=== PATIENT | female | born 1995 | race Caucasian/White ===

== ENCOUNTER 2017-07-30 13:44 | Emergency (ER) | payer BC ==
[2017-07-30 15:16] LABS: Appearance,Urine Clear (Clear); Bacteria,Urine Rare /hpf; Bilirubin,Urine Negative (Negative); Blood,Urine Moderate (Negative); Color,Urine Light Yellow; Glucose,Urine (UA) Negative (Negative); Ketones,Urine Negative (Negative); Leukocyte Esterase,Urine Negative (Negative); Mucus,Urine Rare /hpf; Nitrite,Urine Negative (Negative); PH, Urine 7.5 (5.0-8.0); Protein,Urine Negative (Negative); RBC,Urine 2 /hpf (0-5); Specific Gravity,Urine 1.007 (1.001-1.035); Squamous Epithelial Cell,Urine 2 /hpf (0-4); Urobilinogen,Urine <2.0 mg/dL (<2.0); WBC,Urine 1 /hpf (0-5)
--- NOTE | 2017-07-30 15:20 | ED ---
Female Urogenital HPI - General Chief complaint: Vaginal Bleeding Stated complaint: Bleeding, 6 wks preg Time Seen by Provider: 07/30/17 15:07 Source: patient Mode of arrival: ambulatory Limitations: no limitations - History of Present Illness Initial comments: patient is a 21-year-old female presents with the chief complaint of vaginal bleeding. The patient states that she took a positive test this morning. Patient states she has been having vaginal spotting since July 20 however over the last 2 days or so she has been having passage of clots, and lower abdominal cramping. The patient is concerned that she is miscarrying. Patient has no previous pregnancies. There is no aggravating or alleviating factors of her pain. Patient states that she normally has irregular periods, and she has been on and off control, currently off control. Last Menstrual Period: 06/14/17 - Related Data Home Medications Medication Instructions Recorded Confirmed Acetaminophen/Pamabrom [Midol 1 tab PO BID PRN 07/30/17 07/30/17 Caplet] Docusate [Colace] 100 mg PO DAILY PRN 07/30/17 07/30/17 Ibuprofen [Motrin Ib] 400 mg PO Q6HR PRN 07/30/17 07/30/17 Allergies Allergy/AdvReac Type Severity Reaction Status Date / Time No Known Allergies Allergy Verified 07/30/17 15:13 Review of Systems ROS Statement: Those systems with pertinent positive or pertinent negative responses have been documented in the HPI. ROS Other: All systems not noted in ROS Statement are negative. Gastrointestinal: Reports: abdominal pain, nausea, vomiting Past Medical History Past Medical History: No Reported History History of Any Multi-Drug Resistant Organisms: None Reported Past Surgical History: No Surgical Hx Reported Past Psychological History: No Psychological Hx Reported Smoking Status: Never smoker Past Alcohol Use History: None Reported Past Drug Use History: None Reported General Exam Limitations: no limitations General appearance: alert, in no apparent distress Head exam: Present: atraumatic, normocephalic Eye exam: Present: normal appearance ENT exam: Present: normal exam, mucous membranes moist Neck exam: Present: full ROM Respiratory exam: Present: normal lung sounds bilaterally Cardiovascular Exam: Present: regular rate, normal rhythm GI/Abdominal exam: Present: soft. Absent: distended, tenderness Rectal exam: Present: deferred Extremities exam: Present: normal inspection Back exam: Present: normal inspection Neurological exam: Present: alert, oriented X3 Psychiatric exam: Present: normal affect, normal mood Skin exam: Present: warm, dry, intact Course Vital Signs 07/30/17 07/30/17 14:54 16:22 Temperature 98.6 F 98.3 F Pulse Rate 81 69 Respiratory 20 18 Rate Blood Pressure 151/83 122/77 O2 Sat by Pulse 99 99 Oximetry Medical Decision Making - Medical Decision Making patient presents with chief complaint of vaginal bleeding, and positive test. On initial evaluation, patient appears stable, vital signs are stable. Patient will have physical as including urinalysis and hCG. She will go for a pelvic ultrasound. 4:53 PM lab evaluation this patient is unremarkable. Hemoglobin is stable. Beta hCG is elevated at 53. Ultrasound of the pelvic organs does not show evidence of an intrauterine , further the rest of the pelvic anatomy is within normal limits. At this time, differential includes early , early ectopic , or failed . I discussed the results with the patient, I recommended follow-up with OB for serial beta hCGs. The patient and her family are agreeable with this care plan. They're given specific signs and symptoms that should prompt return visit to the emergency department. Patient was discharged in stable condition. - Lab Data Result diagrams: 07/30/17 15:38 07/30/17 15:38 Lab Results 07/30/17 07/30/17 07/30/17 Range/Units 15:00 15:00 15:38 WBC (4.0-11.0) k/uL RBC (3.80-5.40) m/uL Hgb (11.4-16.0) gm/dL Hct (34.0-46.0) % MCV (80.0-100.0) fL MCH (25.0-35.0) pg MCHC (31.0-37.0) g/dL RDW (11.5-15.5) % Plt Count (150-450) k/uL Neutrophils % % Lymphocytes % % Monocytes % % Eosinophils % % Basophils % % Neutrophils # (1.3-7.7) k/uL Lymphocytes # (1.0-4.8) k/uL Monocytes # (0-1.0) k/uL Eosinophils # (0-0.7) k/uL Basophils # (0-0.2) k/uL Sodium 141 (137-145) mmol/L Potassium 4.3 (3.5-5.1) mmol/L Chloride 108 H (98-107) mmol/L Carbon Dioxide 24 (22-30) mmol/L Anion Gap 9 mmol/L BUN 10 (7-17) mg/dL Creatinine 0.66 (0.52-1.04) mg/dL Est GFR (MDRD) Af Amer >60 (>60 ml/min/1.73 sqM) Est GFR (MDRD) Non-Af >60 (>60 ml/min/1.73 sqM) Glucose 91 (74-99) mg/dL Calcium 10.0 (8.4-10.2) mg/dL HCG, Quant 57.3 mIU/mL Urine Color Light Yellow Urine Appearance Clear (Clear) Urine pH 7.5 (5.0-8.0) Ur Specific Mio 1.007 (1.001-1.035) Urine Protein Negative (Negative) Urine Glucose (UA) Negative (Negative) Urine Ketones Negative (Negative) Urine Blood Moderate H (Negative) Urine Nitrite Negative (Negative) Urine Bilirubin Negative (Negative) Urine Urobilinogen <2.0 (<2.0) mg/dL Ur Leukocyte Esterase Negative (Negative) Urine RBC 2 (0-5) /hpf Urine WBC 1 (0-5) /hpf Ur Squamous Epith Cells 2 (0-4) /hpf Urine Bacteria Rare H (None) /hpf Urine Mucus Rare H (None) /hpf Urine HCG, Qual Not Detected (Not Detectd) 07/30/17 Range/Units 15:38 WBC 8.0 (4.0-11.0) k/uL RBC 4.06 (3.80-5.40) m/uL Hgb 13.5 (11.4-16.0) gm/dL Hct 39.1 (34.0-46.0) % MCV 96.4 (80.0-100.0) fL MCH 33.4 (25.0-35.0) pg MCHC 34.6 (31.0-37.0) g/dL RDW 13.5 (11.5-15.5) % Plt Count 255 (150-450) k/uL Neutrophils % 75 % Lymphocytes % 18 % Monocytes % 5 % Eosinophils % 1 % Basophils % 0 % Neutrophils # 6.0 (1.3-7.7) k/uL Lymphocytes # 1.5 (1.0-4.8) k/uL Monocytes # 0.4 (0-1.0) k/uL Eosinophils # 0.1 (0-0.7) k/uL Basophils # 0.0 (0-0.2) k/uL Sodium (137-145) mmol/L Potassium (3.5-5.1) mmol/L Chloride (98-107) mmol/L Carbon Dioxide (22-30) mmol/L Anion Gap mmol/L BUN (7-17) mg/dL Creatinine (0.52-1.04) mg/dL Est GFR (MDRD) Af Amer (>60 ml/min/1.73 sqM) Est GFR (MDRD) Non-Af (>60 ml/min/1.73 sqM) Glucose (74-99) mg/dL Calcium (8.4-10.2) mg/dL HCG, Quant mIU/mL Urine Color Urine Appearance (Clear) Urine pH (5.0-8.0) Ur Specific Mio (1.001-1.035) Urine Protein (Negative) Urine Glucose (UA) (Negative) Urine Ketones (Negative) Urine Blood (Negative) Urine Nitrite (Negative) Urine Bilirubin (Negative) Urine Urobilinogen (<2.0) mg/dL Ur Leukocyte Esterase (Negative) Urine RBC (0-5) /hpf Urine WBC (0-5) /hpf Ur Squamous Epith Cells (0-4) /hpf Urine Bacteria (None) /hpf Urine Mucus (None) /hpf Urine HCG, Qual (Not Detectd) Disposition Clinical Impression: Vaginal bleeding Disposition: HOME SELF-CARE Condition: Good Instructions: Miscarriage (ED) Referrals: Deyanira Horn DO [Primary Care Provider] - 1-2 days
[2017-07-30 15:51] LABS: Basophils % (A) 0 %; Eosinophils # (A) 0.1 k/uL (0-0.7); Eosinophils % (A) 1 %; HCT 39.1 % (34.0-46.0); HGB 13.5 gm/dL (11.4-16.0); Lymphocytes # (A) 1.5 k/uL (1.0-4.8); Lymphocytes % (A) 18 %; MCH 33.4 pg (25.0-35.0); MCHC 34.6 g/dL (31.0-37.0); MCV 96.4 fL (80.0-100.0); Mean Platelet Volume 8.7; Monocytes # (A) 0.4 k/uL (0-1.0); Monocytes % (A) 5 %; Neutrophils % (A) 75 %; Platelet Count 255 k/uL (150-450); RBC 4.06 m/uL (3.80-5.40); RDW 13.5 % (11.5-15.5)
[2017-07-30 15:56] LABS: Anion Gap 9 mmol/L; Blood Urea Nitrogen 10 mg/dL (7-17); Carbon Dioxide 24 mmol/L (22-30); Chloride 108 mmol/L (98-107); Glucose 91 mg/dL (74-99); Potassium 4.3 mmol/L (3.5-5.1); Sodium 141 mmol/L (137-145)
[2017-07-30 16:12] LABS: HCG,Quantitative Serum 57.3 mIU/mL
[2017-07-30 16:23] VITALS: BP 122/77; PULSE 69; RESP 18; TEMP 98.3
--- NOTE | 2017-07-30 16:33 | US ---
EXAMINATION TYPE: US OB <= 14 wk fetus DATE OF EXAM: 07/30/2017 COMPARISON: NONE CLINICAL HISTORY: 21-year-old female Pain. Pt states she believes she is having a miscarriage/ heavy vaginal bleeding with clots and cramping/ +home test EXAM PERFORMED: Transabdominal (TA) FINDINGS: EXAM MEASUREMENTS: GESTATIONAL AGE / DATING Physician Established: Not yet established Dates by LMP: (6 weeks/4 days) EDC: 03/21/2018 Dates by First Scan: No prior Dates by Current Scan for: No IUP visualized MATERNAL ANATOMY Uterus: 7.3 x 3.6 x 5.4 cm Right Ovary: 2.4 x 1.8 x 2.2 cm Left Ovary: 2.4 x 1.6 x 2.0 cm Post CDS / Adnexa: wnl Presence of free fluid: No Presence of corpus luteal cyst: No GESTATION / SURVEY IUP: No IUP seen at this time, Endo thickness= 0.5 cm Date of LMP: 06/14/2017 Beta HcG (if available): 57 IMPRESSION: No visualized intrauterine . Note that the beta-hCG value is below the threshold for visuali zation of an intrauterine . Recommend serial beta hCG and ultrasound follow-up as indicated. Currently, differential considerations include normal early , failed , and nonvisu alized ectopic.
== END 2017-07-30 17:02 | disposition home or self-care (01) ==
LOC: EC 13:44
DX: O20.9 Hemorrhage in early pregnancy, unspecified (principal); Z3A.01 Less than 8 weeks gestation of pregnancy
CPT/HCPCS: 36415; 76801; 80048; 81001; 81025; 84702; 85025; 99284

== ENCOUNTER 2017-11-03 11:28 | Emergency (ER) | payer BC ==
--- NOTE | 2017-11-03 11:54 | ED ---
Female Urogenital HPI - General Chief complaint: Vaginal Bleeding Stated complaint: POSS MISCARRAGE Time Seen by Provider: 11/03/17 11:45 Source: patient Mode of arrival: ambulatory Limitations: no limitations - History of Present Illness Initial comments: This 22-year-old white female presents with a complaint of some vaginal bleeding which started at approximately 2 AM. It was a small amount of blood with very slight clots but no tissue. She states that it reoccurred again this morning shortly prior to arrival. She denies any abdominal pain but has had some mild nausea. She is approximately 6 weeks . She had a miscarriage in July of this year and this feels somewhat similar. She denies any other complaints or modifying factors. There are no urinary symptoms. - Related Data Home Medications Medication Instructions Recorded Confirmed No Known Home Medications [No 11/03/17 11/03/17 Known Home Medications] Allergies Allergy/AdvReac Type Severity Reaction Status Date / Time No Known Allergies Allergy Verified 11/03/17 11:54 Review of Systems ROS Statement: Those systems with pertinent positive or pertinent negative responses have been documented in the HPI. ROS Other: All systems not noted in ROS Statement are negative. Past Medical History Past Medical History: No Reported History History of Any Multi-Drug Resistant Organisms: None Reported Past Surgical History: No Surgical Hx Reported Past Psychological History: No Psychological Hx Reported Smoking Status: Never smoker Past Alcohol Use History: None Reported Past Drug Use History: None Reported General Exam - General Exam Comments Initial Comments: GENERAL: The patient is well nourished and well hydrated. VITAL SIGNS: Heart rate, blood pressure, respiratory rate reviewed as recorded in nurse's notes. EYES: Pupils are round and reactive. Extraocular movements are intact. No conjunctival / lid redness or swelling. ENT: No external evidence of injury, swelling, or ecchymosis. Airway is patent. Throat is clear. NECK: Nontender. No swelling or evidence of injury. No subcutaneous emphysema. Trachea is midline. No thyroid mass. HEART: Regular rate and rhythm. Good peripheral pulses. LUNGS/CHEST: Breath sounds clear and equal bilaterally. No rales, rhonchi, or wheezes. No ecchymosis, subcutaneous emphysema, or tenderness. ABDOMEN: There is very minimal tenderness noted in the suprapubic region. No palpable masses or organomegaly. No peritoneal signs. No abdominal wall swelling or ecchymosis. EXTREMITIES: No extremity tenderness. Normal muscle tone and function. No thoracolumbar tenderness. NEUROLOGIC: Sensation is grossly intact. Cranial nerve exam reveals face is symmetrical, tongue is midline, speech is clear. SKIN: No abrasions or ecchymosis is noted. No induration or masses noted. PSYCHIATRIC: Alert and oriented. Appropriate behavior and judgment. Limitations: no limitations Course Vital Signs 11/03/17 11/03/17 11/03/17 11:34 12:06 13:53 Temperature 98.1 F 97.6 F Pulse Rate 78 66 Respiratory 20 16 16 Rate Blood Pressure 143/78 97/55 O2 Sat by Pulse 98 99 Oximetry Medical Decision Making - Medical Decision Making The patient was seen and examined. All diagnostics are reviewed. The patient' s hemoglobin is stable. Her beta hCG is elevated. The Rh factor is positive. The pelvic ultrasound does show evidence of a intrauterine at approximately 6 weeks 1 day with estimated date of delivery being 06/28/2018. They do note a subchorionic hemorrhage. Is felt as though the patient does have a threatened miscarriage. Nevertheless, the appears viable at this time. It is felt as though she is stable for discharge and may follow-up with the P[facility] COM[facility] closely. She is instructed that she may take Tylenol if needed for pain but to avoid any aspirin or Motrin. Return parameters are discussed in detail. - Lab Data Result diagrams: 11/03/17 12:15 Lab Results 11/03/17 11/03/17 11/03/17 Range/Units 12:15 12:15 12:15 WBC 5.3 (3.8-10.6) k/uL RBC 4.16 (3.80-5.40) m/uL Hgb 14.0 (11.4-16.0) gm/dL Hct 39.2 (34.0-46.0) % MCV 94.3 (80.0-100.0) fL MCH 33.6 (25.0-35.0) pg MCHC 35.6 (31.0-37.0) g/dL RDW 12.0 (11.5-15.5) % Plt Count 222 (150-450) k/uL Neutrophils % 69 % Lymphocytes % 22 % Monocytes % 7 % Eosinophils % 1 % Basophils % 0 % Neutrophils # 3.6 (1.3-7.7) k/uL Lymphocytes # 1.2 (1.0-4.8) k/uL Monocytes # 0.4 (0-1.0) k/uL Eosinophils # 0.0 (0-0.7) k/uL Basophils # 0.0 (0-0.2) k/uL HCG, Quant 71430.6 mIU/mL Blood Type O Positive Blood Type Recheck No Disposition Clinical Impression: Threatened , Intrauterine , Subchorionic hemorrhage Disposition: HOME SELF-CARE Condition: Good Instructions: Threatened Miscarriage (ED) Is patient prescribed a controlled substance at d/c from ED?: No Referrals: Deyanira Horn DO [Primary Care Provider] - 1-2 days Time of Disposition: 14:42
[2017-11-03 12:07] VITALS: RESP 16
[2017-11-03 12:30] LABS: Basophils % (A) 0 %; Eosinophils % (A) 1 %; HCT 39.2 % (34.0-46.0); Lymphocytes # (A) 1.2 k/uL (1.0-4.8); Lymphocytes % (A) 22 %; MCH 33.6 pg (25.0-35.0); MCHC 35.6 g/dL (31.0-37.0); MCV 94.3 fL (80.0-100.0); Mean Platelet Volume 8.4; Monocytes # (A) 0.4 k/uL (0-1.0); Monocytes % (A) 7 %; Neutrophils # (A) 3.6 k/uL (1.3-7.7); Neutrophils % (A) 69 %; Platelet Count 222 k/uL (150-450); RBC 4.16 m/uL (3.80-5.40); WBC 5.3 k/uL (3.8-10.6)
--- NOTE | 2017-11-03 13:56 | US ---
EXAMINATION TYPE: Transabdominal DATE OF EXAM: 10/11/17 COMPARISON: NONE CLINICAL HISTORY: pain. Bleeding x 2 days, 2, miscarriage 1 EXAM PERFORMED: Transabdominal (TA) EXAM MEASUREMENTS: GESTATIONAL AGE / DATING Physician Established: Not established yet Dates by LMP: (6 weeks/1 days) EDC: 06/28/2018 Dates by First Scan: This is 1st scan Dates by Current Scan for: (6 weeks/1 days) EDC: 06/28/2018 MATERNAL ANATOMY Uterus: 7.4 x 5.0 x 6.4cm, anteverted Right Ovary: 2.2 x 1.5 x 1.2cm Left Ovary: 3.1 x 1.9 x 2.2cm Post CDS / Adnexa: small amount of free fluid in posterior cul de sac Presence of free fluid: yes Presence of corpus luteal cyst: left ovary: 1.7 x 1.6 x 1.6cm hypoechoic area with peripheral vascula rity, probable corpus luteum Presence of subchorionic bleed: 2.7 x 1.0 x 2.1cm complex area inferior to gestational sac, probable subchorionic bleed GESTATION / SURVEY CRL: 0.4cm (6 weeks/1 days) Yolk Sac (normal less than 6mm): 3.1mm Heart Rate: 117 bpm Rhythm: Normal IUP: Viable IUP Date of LMP: 09/21/2017 Beta HcG (if available): Not available at time of exam Viable single IUP measuring 6 weeks 1 day with a heart rate of 117bpm and an estimated delivery date of 06/28/2018, 2.1cm complex area inferior to gestational sac, subchorionic bleed. IMPRESSION: 1. Subchorionic hemorrhage approximately 50% of the gestational sac diameter. 2. Single live intrauterine with a sonographic age of 6 weeks and 1 day and estimated date of delivery of 06/28/2018. Dates are concordant with menstrual age.
[2017-11-03 14:49] VITALS: BP 101/65; PULSE 72; TEMP 97.5
== END 2017-11-03 14:45 | disposition home or self-care (01) ==
LOC: EC 11:28
DX: O20.0 Threatened abortion (principal); Z3A.01 Less than 8 weeks gestation of pregnancy
CPT/HCPCS: 36415; 76801; 84702; 85025; 86900; 86901; 99284

== ENCOUNTER 2018-06-24 00:01 | Outpatient (CLI) | payer BC ==
[2018-06-24 00:25] VITALS: BP 117/84; PULSE 116; RESP 16; TEMP 98.1
--- NOTE | 2018-06-24 07:26 | P.MSEPDOC ---
Presenting Problems - Arrival Data Date of Arrival on Unit: 06/24/18 Time of Arrival on Unit: 00:01 Mode of Transport: Wheelchair - Complaint OB-Reason for Admission/Chief Complaint: Possible Onset of Labor Comment: constant pressure and back pain since 2099 Medical History - Information : 2 Para: 0 Term: 0 : 0 Abortions: Spontaneous or Elective: 0 Number of Living Children: 0 - Gestational Age Gestational Age by CARMEN (wks/days): 39 Weeks and 3 Days Review of Systems - Review of Systems Constitutional: No problems Breast: No problems ENT: No problems Cardiovascular: No problems Respiratory: No problems Gastrointestinal: No problems Genitourinary: No problems Musculoskeletal: No problems Neurological: No problems Skin: No problems Vital Signs - Temperature Temperature: 98.1 F Temperature Source: Temporal Artery Scan - Pulse Right Brachial Pulse Rate: 116 Pulse Assessment Method: Automatic Cuff - Respirations Respiratory Rate: 16 Oxygen Delivery Method: Room Air O2 Sat by Pulse Oximetry: 96 - Blood Pressure Right Arm Blood Pressure: 117/84 Blood Pressure Mean: 95 Blood Pressure Source: Automatic Cuff Medical Screen Scoring (Pre) - Cervical Exam Dilation: 1-3 cm = 1 Membranes: Intact - Uterine Contractions Frequency: > or = 36 weeks =2 Duration: > 40 seconds = 2 Intensity: N/A - Maternal Vital Signs Maternal Temperature: N/A Maternal Blood Pressure: N/A Signs of Preeclampsia: N/A Maternal Respirations: N/A - Pain Assessment Pain Location and Character: Back, Pelvic Pain Scale Used: Numeric (1 - 10) Pain Intensity: 5 Pain Description: *Acute, Aching Pain Frequency: Intermittent Pain Duration: 3 Pain Duration Units: Hours Pain Behavior: None Exhibited Pain Aggravating Factors: Contractions Non-Pharmacological Interventions: Position/Reposition, Reduce Environmental Stimuli, Relaxation Technique - Assessment Baseline FHR: 130 Heart Rate - NICHD Category: Category I (Normal) = 0 NST: Reactive Position: N/A Station: N/A - Total Score Total Score (Pre): 5 - Level of Risk Level of Risk: Low (0-5) Medical Screen Scoring (Post) - Post Treatment Level of Risk Post Treatment Level of Risk: Low (0-5) Physician Notification (Post) - Physician Notified Physician Notified Date: 06/24/18 Physician Notified Time: 02:04 Spoke With: Irizarry New Order Received: Yes (discharge) Disposition - Disposition OB Disposition: Discharge to home, Written follow up instructions reviewed Discharge Date: 06/24/18 Discharge Time: 02:13 I agree with the RN Medical Screening Exam: Yes Risk & Benefit of care provided described in d/c instruction: Yes Diagnosis: FALSE LABOR AT OR AFTER 37 COMPLETED WEEKS OF GESTATION
== END 2018-06-24 02:13 | disposition home or self-care (01) ==
LOC: FBPOP 00:01
PROVIDERS: ATTEND Obstetrics & Gynecology
DX: O47.1 False labor at or after 37 completed weeks of gestation (principal); Z3A.39 39 weeks gestation of pregnancy
CPT/HCPCS: 59025; 99213

== ENCOUNTER 2018-06-30 06:10 | Inpatient (IN) | payer BC ==
[2018-06-30] MEDS ORDERED: OXYTOCIN 10 UNIT/ML 1 ML VIAL IM PRN (06:24)
[2018-06-30] MEDS ORDERED: CARBOPROST TROMETHAMINE 250 MCG/ML 1 ML AMP IM PRN (06:24)
[2018-06-30] MEDS ORDERED: LIDOCAINE 0.5% (PF) 5 MG/ML (50 ML SDV) SQ PRN (06:24)
[2018-06-30] MEDS ORDERED: TERBUTALINE 1 MG/ML VIAL SQ PRN (06:24)
[2018-06-30] MEDS ORDERED: METHYLERGONOVINE 0.2 MG/ML 1 ML AMP IM PRN (06:24)
[2018-06-30] MEDS ORDERED: OXYTOCIN 20 UNITS/1000 ML NS 1,000 ML IV SCH ×2 (06:30→18:00)
[2018-06-30] MEDS: LACTATED RINGERS 1,000 ML IV SCH ×2 (06:32→19:56)
[2018-06-30 06:40] LABS: Basophils % (A) 0 %; Eosinophils # (A) 0.1 k/uL (0-0.7); Eosinophils % (A) 1 %; HCT 38.4 % (34.0-46.0); HGB 13.3 gm/dL (11.4-16.0); Lymphocytes # (A) 1.7 k/uL (1.0-4.8); Lymphocytes % (A) 15 %; MCH 34.5 pg (25.0-35.0); MCHC 34.7 g/dL (31.0-37.0); MCV 99.3 fL (80.0-100.0); Mean Platelet Volume 8.6; Monocytes # (A) 0.6 k/uL (0-1.0); Monocytes % (A) 6 %; Neutrophils # (A) 8.5 k/uL (1.3-7.7); Neutrophils % (A) 78 %; Platelet Count 204 k/uL (150-450); RBC 3.86 m/uL (3.80-5.40)
[2018-06-30 07:24] VITALS: BMI 34.5
[2018-06-30] MEDS: BUTORPHANOL 1 MG/ML 1 ML VIAL IV PRN ×2 (12:08→14:00)
[2018-06-30] MEDS ORDERED: SODIUM CHLORIDE 0.9% 100 ML BAG ONE (16:36)
[2018-06-30] MEDS ORDERED: ROPIVACAINE 5MG/ML 20ML VIAL ONE (16:36)
[2018-06-30] MEDS ORDERED: fentaNYL (PF) 50 MCG/ML 5 ML AMP ONE (16:36)
[2018-06-30] MEDS ORDERED: diphenhydrAMINE 50 MG/ML 1 ML VIAL IVP PRN ×2 (17:53)
[2018-06-30] MEDS ORDERED: diphenhydrAMINE 50 MG CAP PO PRN (17:53)
[2018-06-30] MEDS ORDERED: LANOLIN CREAM 5 GM TUBE TOPICAL PRN (17:53)
[2018-06-30] MEDS ORDERED: WITCH HAZEL 1 EACH MED..PAD TOPICAL PRN (17:53)
[2018-06-30] MEDS ORDERED: SIMETHICONE 80 MG CHEWABLE PO PRN (17:53)
[2018-06-30] MEDS ORDERED: ACETAMINOPHEN TAB 325 MG TAB PO PRN (17:53)
[2018-06-30] MEDS ORDERED: ZOLPIDEM 5 MG TAB PO PRN (17:53)
[2018-06-30] MEDS ORDERED: diphenhydrAMINE 25 MG CAP PO PRN (17:53)
[2018-06-30] MEDS ORDERED: HYDROCORTISONE 2.5% RECTAL CREAM 30 GM TUBE RECTAL PRN (17:53)
[2018-06-30] MEDS ORDERED: BENZOCAINE/MENTHOL SPRAY 1 GM/SPRAY AEROSOL TOPICAL PRN (17:53)
--- NOTE | 2018-06-30 17:57 | P.HPOB ---
History of Present Illness H&P Date: 06/30/18 Chief Complaint: INduction of LAbor 22-year-old presents at 40 weeks and 2 days for induction of labor. Her cervix is 1-2 cm dilated, 80% effaced, and -2 station. She is cristobal irregularly. heart tones are 130-135 with moderate variability and reactive. Review of Systems All systems: negative Constitutional: Denies chills, Denies fever Eyes: denies blurred vision, denies pain Ears, nose, mouth and throat: Denies headache, Denies sore throat Cardiovascular: Denies chest pain, Denies shortness of breath Respiratory: Denies cough Gastrointestinal: Denies abdominal pain, Denies diarrhea, Denies nausea, Denies vomiting Genitourinary: Denies dysuria, Denies hematuria Musculoskeletal: Denies myalgias Integumentary: Denies pruritus, Denies rash Neurological: Denies numbness, Denies weakness Psychiatric: Denies anxiety, Denies depression Endocrine: Denies fatigue, Denies weight change Past Medical History Past Medical History: No Reported History Additional Past Medical History / Comment(s): Obstetric history: First was a spontaneous . This is her second . She's had care with me since 8 weeks gestation. Blood type is O+, abs negative, rubella immune, RPR nonreactive, hep is B-, HIV nonreactive. Negative quad screen, normal anatomy ultrasound. Normal 1 hour glucose tolerance test. GBS negative. History of Any Multi-Drug Resistant Organisms: None Reported Past Surgical History: No Surgical Hx Reported Past Anesthesia/Blood Transfusion Reactions: No Reported Reaction Past Psychological History: No Psychological Hx Reported Smoking Status: Never smoker Past Alcohol Use History: None Reported Past Drug Use History: None Reported - Past Family History Father Family Medical History: No Reported History Medications and Allergies Home Medications Medication Instructions Recorded Confirmed Type Pnv,Calcium 72/Iron/Folic Acid 1 tab PO DAILY 06/30/18 06/30/18 History [ Plus Tablet] Allergies Allergy/AdvReac Type Severity Reaction Status Date / Time No Known Allergies Allergy Verified 06/24/18 00:10 Exam Osteopathic Statement: *. No significant issues noted on an osteopathic structural exam other than those noted in the History and Physical/Consult. Intake and Output 06/30/18 06/30/18 06/30/18 06:59 14:59 22:59 Intake Total 250 Balance 250 Intake: Oral 250 Other: Weight 88.451 kg 88.451 kg Heart: Regular rate and rhythm Lungs: Clear to auscultation bilaterally Abdomen: Soft, nontender Extremities: Negative Homans sign Results Result Diagrams: 06/30/18 06:30 Abnormal Lab Results - Last 24 Hours (Table) 06/30/18 Range/Units 06:30 WBC 11.0 H (3.8-10.6) k/uL Neutrophils # 8.5 H (1.3-7.7) k/uL Assessment and Plan (1) Normal labor Current Visit: Yes Status: Acute Code(s): O80 - ENCOUNTER FOR FULL-TERM UNCOMPLICATED DELIVERY; Z37.9 - OUTCOME OF DELIVERY, UNSPECIFIED SNOMED Code(s ): 42481474 Plan: 1. Induction of labor with amniotomy and Pitocin 2. Anticipate normal vaginal delivery
--- NOTE | 2018-06-30 17:59 | P.PROBDLV ---
Vaginal Delivery Note - . Vaginal Delivery Note: 22-year-old presents at 40 weeks and 2 days for induction of labor. Her cervix is 1-2 cm dilated, 80% effaced, and -2 station. She is cristobal irregularly. heart tones are 130-135 with moderate variability and reactive. Pitocin was started. Amniotomy was performed at 7:16 AM, clear fluid noted. At first she did not want an epidural and did get Stadol for pain medication. When she was about 6 cm she did get an epidural for pain management. Her cervix was completely dilated at 1722. She pushed, and delivered a viable female infant over intact perineum under epidural anesthesia at 1740. Head delivered OA, anterior shoulder delivered gentle downward guidance followed by posterior shoulder and rest of body. Nose mouth bulb suctioned, cord clamped and cut, placed on mother's abdomen. Apgars 8, 9 , weight 7 lbs. 2 oz. Placenta delivered spontaneously, intact with three- vessel cord at 1744. Vagina, cervix, perineum inspected. First-degree midline laceration was repaired with 3-0 Vicryl. Estimated blood loss 150 mL. Mother and baby in stable condition.
[2018-07-01] MEDS: IBUPROFEN 600 MG TAB PO PRN ×3 (00:08→19:49)
[2018-07-01] MEDS: SENNOSIDES-DOCUSATE SODIUM 1 EACH TAB PO SCH ×3 (00:08→21:16)
[2018-07-01 06:31] LABS: Basophils # (A) 0.1 k/uL (0-0.2); Basophils % (A) 0 %; Eosinophils # (A) 0.1 k/uL (0-0.7); Eosinophils % (A) 0 %; Lymphocytes % (A) 12 %; MCH 34.2 pg (25.0-35.0); MCHC 33.4 g/dL (31.0-37.0); MCV 102.5 fL (80.0-100.0); Macrocytosis Slight; Mean Platelet Volume 7.9; Monocytes # (A) 0.9 k/uL (0-1.0); Monocytes % (A) 5 %; Neutrophils # (A) 14.1 k/uL (1.3-7.7); Neutrophils % (A) 81 %; Platelet Count 212 k/uL (150-450); RBC 3.22 m/uL (3.80-5.40); RDW 13.1 % (11.5-15.5); WBC 17.4 k/uL (3.8-10.6)
--- NOTE | 2018-07-01 07:45 | P.DS ---
Providers Date of admission: 06/30/18 06:10 Expected date of discharge: 07/01/18 Attending physician: Pamela Villarreal Primary care physician: Stated None - Discharge Diagnosis(es) (1) Normal labor Current Visit: Yes Status: Resolved (2) Status post normal vaginal delivery Current Visit: Yes Status: Acute Hospital Course: Patient presented for induction of labor. She underwent a normal vaginal delivery. Her course was complicated by some tachycardia but all her vitals are stable, clinically she appears and feels fine the amount of bleeding is normal. She denies nausea, vomiting, chest pain, shortness of breath or calf pain. She'll be discharged home day #1 in stable condition to follow-up with me in 6 weeks. Plan - Discharge Summary New Discharge Prescriptions: New Ibuprofen [Motrin] 600 mg PO Q6HR PRN #30 tab PRN Reason: Mild Pain Or Fever >= 100.5 No Action Pnv,Calcium 72/Iron/Folic Acid [ Plus Tablet] 1 tab PO DAILY Discharge Medication List Pnv,Calcium 72/Iron/Folic Acid [ Plus Tablet] 1 tab PO DAILY 06/30/18 [ History] Ibuprofen [Motrin] 600 mg PO Q6HR PRN #30 tab 07/01/18 [Rx] Follow up Appointment(s)/Referral(s): Pamela Villarreal DO [Doctor of Osteopathic Medicine] - 6 Weeks Discharge Disposition: HOME SELF-CARE
[2018-07-02 00:24] VITALS: RESP 16
[2018-07-02] MEDS: IBUPROFEN 600 MG TAB PO PRN ×2 (02:23→07:42)
[2018-07-02] MEDS: SENNOSIDES-DOCUSATE SODIUM 1 EACH TAB PO SCH (07:43)
[2018-07-02 08:13] VITALS: BP 124/70; PULSE 85; TEMP 98.8
== END 2018-07-02 15:15 | disposition home or self-care (01) | DRG 807 ==
LOC: 4FBP 06:10
PROVIDERS: ADMIT Obstetrics & Gynecology; ATTEND Obstetrics & Gynecology
PROC: 10E0XZZ Delivery of Products of Conception, External Approach (ICD-10-PCS; principal; 2018-06-30)
PROC: 0HQ9XZZ Repair Perineum Skin, External Approach (ICD-10-PCS; 2018-06-30)
PROC: 3E033VJ Introduction of Other Hormone into Peripheral Vein, Percutaneous Approach (ICD-10-PCS; 2018-06-30)
PROC: 10907ZC Drainage of Amniotic Fluid, Therapeutic from Products of Conception, Via Natural or Artificial Opening (ICD-10-PCS; 2018-06-30)
PROC: 00HU33Z Insertion of Infusion Device into Spinal Canal, Percutaneous Approach (ICD-10-PCS; 2018-06-30)
PROC: 3E0R3BZ Introduction of Anesthetic Agent into Spinal Canal, Percutaneous Approach (ICD-10-PCS; 2018-06-30)
DX: O70.0 First degree perineal laceration during delivery (principal); Z37.0 Single live birth; Z3A.40 40 weeks gestation of pregnancy; R00.0 Tachycardia, unspecified; Z79.899 Other long term (current) drug therapy
CPT/HCPCS: 85025; 86850; 86900; 86901

== ENCOUNTER 2020-01-21 18:09 | Outpatient (CLI) | payer OTHER ==
[2020-01-21] MEDS ORDERED: ONDANSETRON 4 MG/2 ML VIAL IVP STA (18:17)
[2020-01-21] MEDS: DEXTROSE 5%-LACTATED RINGERS 1,000 ML IV ONE ×2 (18:53→19:59)
[2020-01-21 19:26] LABS: Basophils % (A) 0 %; Eosinophils # (A) 0.1 k/uL (0-0.7); Eosinophils % (A) 1 %; HCT 42.7 % (34.0-46.0); HGB 14.5 gm/dL (11.4-16.0); Lymphocytes # (A) 1.3 k/uL (1.0-4.8); Lymphocytes % (A) 16 %; MCH 34.2 pg (25.0-35.0); MCV 100.6 fL (80.0-100.0); Mean Platelet Volume 9.6; Monocytes # (A) 0.3 k/uL (0-1.0); Monocytes % (A) 3 %; Neutrophils # (A) 6.1 k/uL (1.3-7.7); Neutrophils % (A) 78 %; Platelet Count 171 k/uL (150-450); RBC 4.25 m/uL (3.80-5.40); RDW 11.9 % (11.5-15.5); WBC 7.9 k/uL (3.8-10.6)
[2020-01-21 19:48] LABS: ALT 17 U/L (4-34); AST 26 U/L (14-36); African American GFR (CKD) >90 (>60 ml/min/1.73 sqM); Albumin 3.8 g/dL (3.5-5.0); Alkaline Phosphatase 62 U/L (38-126); Anion Gap 7 mmol/L; Blood Urea Nitrogen 8 mg/dL (7-17); Calcium 9.2 mg/dL (8.4-10.2); Carbon Dioxide 22 mmol/L (22-30); Chloride 106 mmol/L (98-107); Glucose 138 mg/dL (74-99); Non-African American GFR(CKD) >90 (>60 ml/min/1.73 sqM); Potassium 3.6 mmol/L (3.5-5.1); Sodium 135 mmol/L (137-145)
[2020-01-21 19:56] VITALS: TEMP 97.9
[2020-01-21] MEDS ORDERED: DEXTROSE 5%-0.45% NACL 1,000 ML IV SCH (20:00)
[2020-01-21 21:06] VITALS: BP 119/70; PULSE 61; RESP 16
--- NOTE | 2020-01-30 08:03 | P.MSEPDOC ---
Presenting Problems - Arrival Data Date of Arrival on Unit: 01/21/20 Time of Arrival on Unit: 18:09 Mode of Transport: Ambulatory - Complaint OB-Reason for Admission/Chief Complaint: Hyperemesis Comment: Pt states n/v last two weeks and losing 20 lbs. Medical History - Information : 3 Para: 1 Term: 1 : 0 Abortions: Spontaneous or Elective: 1 Number of Living Children: 1 - Gestational Age Gestational Age by CARMEN (wks/days): 8 Weeks and 0 Days Review of Systems - Review of Systems Constitutional: No problems Breast: No problems ENT: No problems Cardiovascular: No problems Respiratory: No problems Gastrointestinal: No problems Genitourinary: No problems Musculoskeletal: No problems Neurological: No problems Skin: No problems Vital Signs - Temperature Temperature: 97.9 F Temperature Source: Temporal Artery Scan - Pulse Right Brachial Pulse Rate: 61 Pulse Assessment Method: Automatic Cuff - Respirations Respiratory Rate: 16 Oxygen Delivery Method: Room Air - Blood Pressure Right Arm Blood Pressure: 119/70 Blood Pressure Mean: 86 Blood Pressure Source: Automatic Cuff Medical Screen Scoring (Pre) - Cervical Exam Dilation: Exam Deferred Effacement: Exam Deferred - Uterine Contractions Frequency: N/A Duration: N/A Intensity: N/A - Maternal Vital Signs Maternal Temperature: N/A Signs of Preeclampsia: N/A Maternal Respirations: N/A - Total Score - Baby A Total Score - Baby A: 0 - Total Score - Baby B Total Score - Baby B: 0 - Total Score - Baby C Total Score - Baby C: 0 - Level of Risk - Baby A Level of Risk - Baby A: Low (0-5) - Level of Risk - Baby B Level of Risk - Baby B: Low (0-5) - Level of Risk - Baby C Level of Risk - Baby C: Low (0-5) Physician Notification (Pre) - Physician Notified Physician Notified Date: 01/21/20 Physician Notified Time: 18:10 - Notification Comment Comment: Dr. Villarreal called and gave orders for fluids, zofran and lab work, call with results. Medical Screen Scoring (Post) - Uterine Contractions Frequency: N/A Duration: N/A Intensity: N/A - Maternal Vital Signs Maternal Temperature: N/A Signs of Preeclampsia: N/A Maternal Respirations: N/A - Pain Assessment Pain Intensity: 0 - Maternal Trauma Maternal Trauma: N/A - Total Score Total Score - Baby A: 0 Total Score - Baby B: 0 Total Score - Baby C: 0 - Post Treatment Level of Risk Post Treatment Level of Risk - Baby A: Low (0-5) Post Treatment Level of Risk - Baby B: Low (0-5) Post Treatment Level of Risk - Baby C: Low (0-5) Physician Notification (Post) - Physician Notified Physician Notified Date: 01/21/20 Physician Notified Time: 19:43 Spoke With: Phil Apple Order Received: Yes - Notification Comment Comment: Hang second bag of fluids, pt to have popsicle, d/c home when fluids completed. Disposition - Disposition OB Disposition: Discharge to home, Written follow up instructions reviewed Discharge Date: 01/21/20 Discharge Time: 21:00 I agree with the RN Medical Screening Exam: Yes Risk & Benefit of care provided described in d/c instruction: Yes Diagnosis: MILD HYPEREMESIS GRAVIDARUM
== END 2020-01-21 21:00 | disposition home or self-care (01) ==
LOC: FBPOP 18:09
PROVIDERS: ATTEND Obstetrics & Gynecology
DX: O21.0 Mild hyperemesis gravidarum (principal); Z3A.08 8 weeks gestation of pregnancy
CPT/HCPCS: 99214; 96360; 96361; 96375; 80053; 85025; J2405

== ENCOUNTER 2020-08-27 06:10 | Inpatient (IN) | payer OTHER ==
[2020-08-27] MEDS ORDERED: CARBOPROST TROMETHAMINE 250 MCG/ML 1 ML AMP IM PRN (06:15)
[2020-08-27] MEDS ORDERED: OXYTOCIN 10 UNIT/ML 1 ML VIAL IM PRN (06:15)
[2020-08-27] MEDS ORDERED: METHYLERGONOVINE 0.2 MG/ML 1 ML AMP IM PRN (06:15)
[2020-08-27] MEDS ORDERED: TERBUTALINE 1 MG/ML VIAL SQ PRN (06:15)
[2020-08-27] MEDS ORDERED: OXYTOCIN 30 UNITS/500 ML NS 30 UNIT in SALINE 1 500ML.BAG IV SCH ×2 (06:15→18:15)
[2020-08-27] MEDS ORDERED: LIDOCAINE 0.5% (PF) 5 MG/ML (50 ML SDV) SQ PRN (06:15)
[2020-08-27 07:06] LABS: Basophils % (A) 0 %; Eosinophils # (A) 0.1 k/uL (0-0.7); Eosinophils % (A) 1 %; HCT 39.2 % (34.0-46.0); HGB 13.1 gm/dL (11.4-16.0); Lymphocytes # (A) 1.6 k/uL (1.0-4.8); Lymphocytes % (A) 17 %; MCH 33.7 pg (25.0-35.0); MCHC 33.4 g/dL (31.0-37.0); MCV 101.1 fL (80.0-100.0); Macrocytosis Slight; Mean Platelet Volume 9.5; Monocytes # (A) 0.6 k/uL (0-1.0); Monocytes % (A) 6 %; Neutrophils % (A) 74 %; Platelet Count 196 k/uL (150-450); RBC 3.88 m/uL (3.80-5.40); RDW 13.5 % (11.5-15.5); WBC 9.4 k/uL (3.8-10.6)
--- NOTE | 2020-08-27 08:31 | P.HPOB ---
History of Present Illness H&P Date: 08/27/20 Chief Complaint: Induction of Labor 25 year old presents at 39 weeks 3 days for induction of labor. Her cervix is 1-2/70/-2 and she is cristobal irregularly. heart tones 130 with moderate variability and reactive; category 1. Review of Systems All systems: negative Constitutional: Denies chills, Denies fever Eyes: denies blurred vision, denies pain Ears, nose, mouth and throat: Denies headache, Denies sore throat Cardiovascular: Denies chest pain, Denies shortness of breath Respiratory: Denies cough Gastrointestinal: Denies abdominal pain, Denies diarrhea, Denies nausea, Denies vomiting Genitourinary: Denies dysuria, Denies hematuria Musculoskeletal: Denies myalgias Integumentary: Denies pruritus, Denies rash Neurological: Denies numbness, Denies weakness Psychiatric: Denies anxiety, Denies depression Endocrine: Denies fatigue, Denies weight change Past Medical History Past Medical History: No Reported History Additional Past Medical History / Comment(s): Obstetric history: First was a spontaneous . Second was a NVD at 40 weeks. This is her third . She's had care with me since 11 weeks gestation. Blood type is O+, abs negative, rubella immune, RPR nonreactive, hep is B-, HIV nonreactive. declined quad screen, normal anatomy ultrasound. Normal 1 hour glucose tolerance test. GBS negative. History of Any Multi-Drug Resistant Organisms: None Reported Past Surgical History: No Surgical Hx Reported Past Anesthesia/Blood Transfusion Reactions: No Reported Reaction Past Psychological History: No Psychological Hx Reported Smoking Status: Never smoker Past Alcohol Use History: None Reported Past Drug Use History: None Reported - Past Family History Father Family Medical History: No Reported History Medications and Allergies Home Medications Medication Instructions Recorded Confirmed Type Pnv,Calcium 72/Iron/Folic Acid 1 tab PO DAILY 06/30/18 01/21/20 History [ Plus Tablet] Allergies Allergy/AdvReac Type Severity Reaction Status Date / Time No Known Allergies Allergy Verified 01/21/20 18:14 Exam Osteopathic Statement: *. No significant issues noted on an osteopathic structural exam other than those noted in the History and Physical/Consult. Vital Signs Temp Pulse Resp BP 08/27/20 06:12 96.8 F L 111 H 20 115/75 Intake and Output 02/16/21 02/17/21 02/17/21 22:59 06:59 14:59 Other: Weight 95.254 kg HEart: RRR Lungs: CTAB Abdomen: soft, nontender Extremeties: neg vipul's Results Result Diagrams: 08/27/20 06:39 Abnormal Lab Results - Last 24 Hours (Table) 08/27/20 Range/Units 06:39 MCV 101.1 H (80.0-100.0) fL Assessment and Plan (1) Elective induction of labor planned Current Visit: Yes Status: Acute Code(s): [id number] - SNOMED Code(s): 259857705 Plan: 1. induction of labor with amniotomy and pitocin 2. anticipate normal vaginal delivery
[2020-08-27] MEDS: LACTATED RINGERS 1,000 ML IV SCH ×2 (13:41→14:45)
[2020-08-27] MEDS ORDERED: fentaNYL (PF) 50 MCG/ML 5 ML AMP ONE (13:51)
[2020-08-27] MEDS ORDERED: ROPIVACAINE 5MG/ML 20ML VIAL ONE (13:51)
[2020-08-27] MEDS ORDERED: SODIUM CHLORIDE 0.9% 100 ML BAG ONE (13:51)
[2020-08-27] MEDS ORDERED: diphenhydrAMINE 50 MG/ML 1 ML VIAL IVP PRN ×2 (18:14)
[2020-08-27] MEDS ORDERED: BENZOCAINE/MENTHOL SPRAY 1 GM/SPRAY AEROSOL TOPICAL PRN (18:14)
[2020-08-27] MEDS ORDERED: LANOLIN CREAM 5 GM TUBE TOPICAL PRN (18:14)
[2020-08-27] MEDS ORDERED: diphenhydrAMINE 50 MG CAP PO PRN (18:14)
[2020-08-27] MEDS ORDERED: SIMETHICONE 80 MG CHEWABLE PO PRN (18:14)
[2020-08-27] MEDS ORDERED: diphenhydrAMINE 25 MG CAP PO PRN (18:14)
[2020-08-27] MEDS ORDERED: ACETAMINOPHEN TAB 325 MG TAB PO PRN (18:14)
[2020-08-27] MEDS ORDERED: HYDROCORTISONE 2.5% RECTAL CREAM 30 GM TUBE RECTAL PRN (18:14)
[2020-08-27] MEDS ORDERED: ZOLPIDEM 5 MG TAB PO PRN (18:14)
--- NOTE | 2020-08-27 18:16 | P.PROBDLV ---
Vaginal Delivery Note - . Vaginal Delivery Note: 25 year old presents at 39 weeks 3 days for induction of labor. Her cervix is 1-2/70/-2 and she is cristobal irregularly. heart tones 130 with moderate variability and reactive; category 1. Pitocin was started. Amniotomy performed at 6:58 AM and clear fluid noted. She was uncomfortable by 1400 and did get an epidural. Her cervix was completely dilated around 1800. She pushed, delivered a viable female infant over intact perineum under epidural anesthesia at 1808. Head delivered OA, nuchal cord 1 easily reduced, anterior shoulder delivered gentle downward guidance for by posterior shoulder and rest of body. Nose and mouth bulb suctioned, cord clamped and cut, infant placed mother's abdomen. Apgars 8, 9, weight 7 lbs. 8 oz. Placenta delivered spontaneously, intact with three-vessel cord at 1810. Vagina, cervix, and perineum were inspected. No lacerations noted. Estimated blood loss 50 mL mother and baby in stable condition.
[2020-08-27 18:24] VITALS: RESP 16
[2020-08-27] MEDS: IBUPROFEN 600 MG TAB PO PRN (19:05)
[2020-08-27] MEDS: SENNOSIDES-DOCUSATE SODIUM 1 EACH TAB PO SCH (20:41)
[2020-08-28 07:08] LABS: Basophils % (A) 0 %; Eosinophils % (A) 0 %; HCT 39.7 % (34.0-46.0); Lymphocytes # (A) 1.7 k/uL (1.0-4.8); Lymphocytes % (A) 14 %; MCH 33.9 pg (25.0-35.0); MCHC 32.7 g/dL (31.0-37.0); MCV 103.5 fL (80.0-100.0); Macrocytosis Slight; Mean Platelet Volume 9.6; Monocytes # (A) 0.8 k/uL (0-1.0); Monocytes % (A) 6 %; Neutrophils # (A) 9.6 k/uL (1.3-7.7); Neutrophils % (A) 79 %; Platelet Count 160 k/uL (150-450); RBC 3.84 m/uL (3.80-5.40); WBC 12.2 k/uL (3.8-10.6)
[2020-08-28] MEDS: IBUPROFEN 600 MG TAB PO PRN ×2 (07:55→13:54)
[2020-08-28] MEDS: SENNOSIDES-DOCUSATE SODIUM 1 EACH TAB PO SCH (07:55)
[2020-08-28 12:48] VITALS: TEMP 98.3
[2020-08-28 16:03] VITALS: BP 115/76; PULSE 72
--- NOTE | 2020-08-29 07:50 | P.DS ---
Providers Date of admission: 08/27/20 06:10 Expected date of discharge: 08/28/20 Attending physician: Pamela Villarreal Primary care physician: Stated None - Discharge Diagnosis(es) (1) Elective induction of labor planned Status: Resolved (2) Status post normal vaginal delivery Status: Acute Hospital Course: Patient presented for induction of labor. She underwent a normal vaginal delivery. Her course was uncomplicated. She'll be discharged home day #1 in stable condition to follow-up with me in 6 weeks. Patient Condition at Discharge: Stable Plan - Discharge Summary New Discharge Prescriptions: New Ibuprofen [Motrin] 600 mg PO Q6HR PRN #30 tab PRN Reason: Mild Pain Or Fever >= 100.5 Ibuprofen [Motrin] 600 mg PO Q6HR PRN #30 tab PRN Reason: Mild Pain Or Fever >= 100.5 No Action Pnv,Calcium 72/Iron/Folic Acid [ Plus Tablet] 1 tab PO DAILY Discharge Medication List Pnv,Calcium 72/Iron/Folic Acid [ Plus Tablet] 1 tab PO DAILY 06/30/18 [History] Ibuprofen [Motrin] 600 mg PO Q6HR PRN #30 tab 08/28/20 [Rx] Ibuprofen [Motrin] 600 mg PO Q6HR PRN #30 tab 08/28/20 [Rx] Follow up Appointment(s)/Referral(s): Pamela Villarreal DO [Doctor of Osteopathic Medicine] - 6 Weeks Discharge Disposition: HOME SELF-CARE
== END 2020-08-28 19:49 | disposition home or self-care (01) | DRG 807 ==
LOC: 4FBP 06:10
PROVIDERS: ADMIT Obstetrics & Gynecology; ATTEND Obstetrics & Gynecology
PROC: 10E0XZZ Delivery of Products of Conception, External Approach (ICD-10-PCS; principal; 2020-08-27)
PROC: 10907ZC Drainage of Amniotic Fluid, Therapeutic from Products of Conception, Via Natural or Artificial Opening (ICD-10-PCS; 2020-08-27)
PROC: 3E033VJ Introduction of Other Hormone into Peripheral Vein, Percutaneous Approach (ICD-10-PCS; 2020-08-27)
PROC: 3E0R3BZ Introduction of Anesthetic Agent into Spinal Canal, Percutaneous Approach (ICD-10-PCS; 2020-08-27)
DX: O69.81X0 Labor and delivery complicated by cord around neck, without compression, not applicable or unspecified (principal); Z37.0 Single live birth; Z3A.39 39 weeks gestation of pregnancy; Z79.899 Other long term (current) drug therapy; Z87.59 Personal history of other complications of pregnancy, childbirth and the puerperium
CPT/HCPCS: 85025; 86850; 86900; 86901

== ENCOUNTER 2022-09-25 05:58 | Emergency (ER) | payer OTHER, BC ==
[2022-09-25 06:23] VITALS: RESP 18; TEMP 98.8
--- NOTE | 2022-09-25 06:34 | ED ---
Female Urogenital HPI - General Chief complaint: Vaginal Bleeding Stated complaint: 11wks preg, vag bleeding, cramping Time Seen by Provider: 09/25/22 06:23 Source: patient, RN notes reviewed Mode of arrival: ambulatory Limitations: no limitations - History of Present Illness Initial comments: This is a 27-year-old female who presents to the emergency department for vaginal bleeding in . Patient is and approximately [address] Villarreal, her CASH ANALYST, yesterday and was started on an antifungal cream for a yeast infection. She did have some light bleeding yesterday before starting the medication, which she was told could be related to the yeast infection. The bleeding has increased today and she is now passing small clots. Also has left-sided pelvic pain/cramping. She had minor bleeding in her first , but has otherwise experienced anything like this in the past. Denies any nausea or vomiting. Denies any fevers, chills, sore throat, cough, dyspnea, chest pain, palpitations, nausea, vomiting, diarrhea, back pain, or headaches. MD Complaint: vaginal bleeding, pelvic pain Onset/Timin -: days(s) Radiation: LLQ Patient : Yes Number of weeks : 11 - Related Data Home Medications Medication Instructions Recorded Confirmed Vit No.180/Iron/Folic 1 tab PO DAILY 06/30/18 08/27/20 [ Plus Tablet] Previous Rx's Medication Instructions Recorded Ibuprofen [Motrin] 600 mg PO Q6HR PRN #30 tab 08/28/20 Ibuprofen [Motrin] 600 mg PO Q6HR PRN #30 tab 08/28/20 Allergies Allergy/AdvReac Type Severity Reaction Status Date / Time No Known Allergies Allergy Verified 09/25/22 06:20 Review of Systems ROS Statement: Those systems with pertinent positive or pertinent negative responses have been documented in the HPI. ROS Other: All systems not noted in ROS Statement are negative. Past Medical History Past Medical History: No Reported History Additional Past Medical History / Comment(s): Obstetric history: First was a spontaneous . Second was a NVD at 40 weeks. This is her third . She's had care with me since 11 weeks gestation. Blood type is O+, abs negative, rubella immune, RPR nonreactive, hep is B-, HIV nonreactive. declined quad screen, normal anatomy ultrasound. Normal 1 hour glucose tolerance test. GBS negative. History of Any Multi-Drug Resistant Organisms: None Reported Past Surgical History: No Surgical Hx Reported Past Anesthesia/Blood Transfusion Reactions: No Reported Reaction Past Psychological History: No Psychological Hx Reported Smoking Status: Never smoker Past Alcohol Use History: None Reported Past Drug Use History: None Reported - Past Family History Father Family Medical History: No Reported History General Exam Limitations: no limitations General appearance: alert, in no apparent distress Head exam: Present: atraumatic, normocephalic, normal inspection Respiratory exam: Present: normal lung sounds bilaterally. Absent: respiratory distress, wheezes, rales, rhonchi, stridor Cardiovascular Exam: Present: regular rate, normal rhythm, normal heart sounds. Absent: systolic murmur, diastolic murmur, rubs, gallop, clicks Neurological exam: Present: alert, oriented X3, CN II-XII intact Psychiatric exam: Present: normal affect, normal mood Skin exam: Present: warm, dry, intact, normal color. Absent: rash Course Vital Signs 09/25/22 09/25/22 06:20 08:15 Temperature 98.8 F Pulse Rate 95 111 H Respiratory 18 18 Rate Blood Pressure 145/88 156/96 O2 Sat by Pulse 98 99 Oximetry Medical Decision Making - Medical Decision Making This is a 27-year-old female who presents to the emergency department for vaginal bleeding in . Was pt. sent in by a medical professional or institution? @ -No Did you speak to anyone other than the patient for history? @ -No Did you review nursing and triage notes? @ -Yes, and I agree, it is accurate with regards to the patient's symptoms. Were old charts reviewed? @ -No Differential Diagnosis? @ -Differential Vaginal Bleeding: Spontaneous , threatened , molar , ectopic , incompetent cervix, placenta previa, uterine rupture, dysfunctional uterine bleeding, hemorrhage, uterine fibroids, malignancy, coagulopathy, PID, cervicitis, adenomyosis, vaginal trauma, this is not meant to be an all- inclusive list. What testing was considered but not performed? (CT, X-rays, U/S, labs)? Why? @ -None What meds were considered but not given? Why? @ -None Did you discuss the management of the patient with other professionals? @ -No Did you reconcile home meds? @ -No Was smoking cessation discussed for >3mins.? @ -No Was critical care preformed (if so, how long)? @ -No Were there social determinants of health that impacted care today? How? (Homelessness, low income, unemployed, alcoholism, drug addiction, transportation, low edu. Level, literacy, decrease access to med. care, senior care, rehab)? @ -No Was there de-escalation of care discussed even if they declined? (Discuss DNR or withdrawal of care, Hospice)? @ -No What co-morbidities impacted this encounter? (DM, HTN, Smoking, COPD, CAD, Cancer, CVA, Hep., AIDS, mental health diagnosis, sleep apnea, morbid obesity)? @ - Was patient admitted / discharged? @ -Discharged. Lab work obtained and found to be nonactionable. UA consistent with contamination. I offered Tylenol for the pain, however the patient declined. Obstetrics ultrasound reveals a possible gestational sac, however failed cannot yet be excluded. Additionally, there was discordance with the patient's dates. She notes that she is approximately 11 weeks , however ultrasound findings suggest that she is 6 weeks 5 days. Findings reviewed with the patient. Advised that she'll need to have her hCG levels repeated in 48 hours. She was given a lab order to have the hCG level repeated in 48 hours. Advised the patient that I cannot personally follow-up on these results with her and she will need to follow up with Dr. Villarreal to review these results. Patient expresses understanding. She is Rh+ and no RhoGAM is indicated. Advised Tylenol as needed for any pelvic pain. Undiagnosed new problem with uncertain prognosis? @ -None Drug Therapy requiring intensive monitoring for toxicity (Heparin, Nitro, Insulin, Cardizem)? @ -None Were any procedures done? @ -None Diagnosis/symptom? @ -Threatened miscarriage Acute, or Chronic, or Acute on Chronic? @ -Acute Uncomplicated (without systemic symptoms) or Complicated (systemic symptoms)? @ -Uncomplicated Side effects of treatment? @ -None Exacerbation, Progression, or Severe Exacerbation] @ -Not applicable Poses a threat to life or bodily function? @ -Yes Return precautions reviewed in depth, the patient is instructed to return to the emergency department with any new, worsening, or concerning symptoms. Patient verbalized understanding. This case was discussed in detail with the attending ED physician, Dr. Funk. Presentation, findings, and treatment plan discussed in detail as well. - Lab Data Result diagrams: 09/25/22 06:47 09/25/22 06:47 Lab Results 09/25/22 09/25/22 09/25/22 Range/Units 06:45 06:47 06:47 WBC 7.0 (3.8-10.6) k/uL RBC 4.41 (3.80-5.40) m/uL Hgb 15.0 (11.4-16.0) gm/dL Hct 43.2 (34.0-46.0) % MCV 97.8 (80.0-100.0) fL MCH 34.1 (25.0-35.0) pg MCHC 34.8 (31.0-37.0) g/dL RDW 12.0 (11.5-15.5) % Plt Count 180 (150-450) k/uL MPV 9.6 Neutrophils % 68 % Lymphocytes % 23 % Monocytes % 6 % Eosinophils % 1 % Basophils % 0 % Neutrophils # 4.8 (1.3-7.7) k/uL Lymphocytes # 1.6 (1.0-4.8) k/uL Monocytes # 0.4 (0-1.0) k/uL Eosinophils # 0.1 (0-0.7) k/uL Basophils # 0.0 (0-0.2) k/uL Sodium 139 (137-145) mmol/L Potassium 3.4 L (3.5-5.1) mmol/L Chloride 107 (98-107) mmol/L Carbon Dioxide 22 (22-30) mmol/L Anion Gap 10 mmol/L BUN 8 (7-17) mg/dL Creatinine 0.69 (0.52-1.04) mg/dL Est GFR (CKD-EPI)AfAm >90 (>60 ml/min/1.73 sqM) Est GFR (CKD-EPI)NonAf >90 (>60 ml/min/1.73 sqM) Glucose 102 H (74-99) mg/dL Calcium 9.4 (8.4-10.2) mg/dL Total Bilirubin 0.4 (0.2-1.3) mg/dL AST 23 (14-36) U/L ALT 29 (4-34) U/L Alkaline Phosphatase 84 (38-126) U/L Total Protein 6.6 (6.3-8.2) g/dL Albumin 4.3 (3.5-5.0) g/dL HCG, Quant 3674.8 mIU/mL Urine Color Urine Appearance (Clear) Urine pH (5.0-8.0) Ur Specific Lingle (1.001-1.035) Urine Protein (Negative) Urine Glucose (UA) (Negative) Urine Ketones (Negative) Urine Blood (Negative) Urine Nitrite (Negative) Urine Bilirubin (Negative) Urine Urobilinogen (<2.0) mg/dL Ur Leukocyte Esterase (Negative) Urine RBC (0-5) /hpf Urine WBC (0-5) /hpf Urine WBC Clumps (None) /hpf Ur Squamous Epith Cells (0-4) /hpf Urine Bacteria (None) /hpf Urine Mucus (None) /hpf Blood Type O Positive Blood Type Recheck O Pos Bld Type Recheck Status No 09/25/22 Range/Units 08:24 WBC (3.8-10.6) k/uL RBC (3.80-5.40) m/uL Hgb (11.4-16.0) gm/dL Hct (34.0-46.0) % MCV (80.0-100.0) fL MCH (25.0-35.0) pg MCHC (31.0-37.0) g/dL RDW (11.5-15.5) % Plt Count (150-450) k/uL MPV Neutrophils % % Lymphocytes % % Monocytes % % Eosinophils % % Basophils % % Neutrophils # (1.3-7.7) k/uL Lymphocytes # (1.0-4.8) k/uL Monocytes # (0-1.0) k/uL Eosinophils # (0-0.7) k/uL Basophils # (0-0.2) k/uL Sodium (137-145) mmol/L Potassium (3.5-5.1) mmol/L Chloride (98-107) mmol/L Carbon Dioxide (22-30) mmol/L Anion Gap mmol/L BUN (7-17) mg/dL Creatinine (0.52-1.04) mg/dL Est GFR (CKD-EPI)AfAm (>60 ml/min/1.73 sqM) Est GFR (CKD-EPI)NonAf (>60 ml/min/1.73 sqM) Glucose (74-99) mg/dL Calcium (8.4-10.2) mg/dL Total Bilirubin (0.2-1.3) mg/dL AST (14-36) U/L ALT (4-34) U/L Alkaline Phosphatase (38-126) U/L Total Protein (6.3-8.2) g/dL Albumin (3.5-5.0) g/dL HCG, Quant mIU/mL Urine Color Red Urine Appearance Cloudy H (Clear) Urine pH 6.5 (5.0-8.0) Ur Specific Lingle 1.016 (1.001-1.035) Urine Protein 1+ H (Negative) Urine Glucose (UA) Negative (Negative) Urine Ketones Negative (Negative) Urine Blood Large H (Negative) Urine Nitrite Negative (Negative) Urine Bilirubin Negative (Negative) Urine Urobilinogen <2.0 (<2.0) mg/dL Ur Leukocyte Esterase Large H (Negative) Urine RBC >182 H (0-5) /hpf Urine WBC 44 H (0-5) /hpf Urine WBC Clumps Few H (None) /hpf Ur Squamous Epith Cells 45 H (0-4) /hpf Urine Bacteria Occasional H (None) /hpf Urine Mucus Rare H (None) /hpf Blood Type Blood Type Recheck Bld Type Recheck Status - Radiology Data Radiology results: report reviewed, image reviewed Disposition Clinical Impression: Threatened Disposition: HOME SELF-CARE Instructions (If sedation given, give patient instructions): Threatened Miscarriage (ED), Non-Threatening First Trimester Vaginal Bleed (ED) Additional Instructions: Return to the emergency department with any new, worsening, or concerning symptoms. Take the lab order to have your hCG count repeated in 48 hours. Follow up on these results with Dr. Villarreal. Take Tylenol as needed for abdomi nal pain. Follow up with your primary care provider in 1-2 days. Is patient prescribed a controlled substance at d/c from ED?: No Referrals: Anthony Horn MD [Primary Care Provider] - 1-2 days
[2022-09-25 07:04] LABS: Basophils % (A) 0 %; Eosinophils # (A) 0.1 k/uL (0-0.7); Eosinophils % (A) 1 %; HCT 43.2 % (34.0-46.0); Lymphocytes # (A) 1.6 k/uL (1.0-4.8); Lymphocytes % (A) 23 %; MCH 34.1 pg (25.0-35.0); MCHC 34.8 g/dL (31.0-37.0); MCV 97.8 fL (80.0-100.0); Mean Platelet Volume 9.6; Monocytes # (A) 0.4 k/uL (0-1.0); Monocytes % (A) 6 %; Neutrophils # (A) 4.8 k/uL (1.3-7.7); Neutrophils % (A) 68 %; Platelet Count 180 k/uL (150-450); RBC 4.41 m/uL (3.80-5.40)
[2022-09-25 07:56] VITALS: BP 156/96; PULSE 111
[2022-09-25 08:01] LABS: ALT 29 U/L (4-34); AST 23 U/L (14-36); African American GFR (CKD) >90 (>60 ml/min/1.73 sqM); Albumin 4.3 g/dL (3.5-5.0); Alkaline Phosphatase 84 U/L (38-126); Anion Gap 10 mmol/L; Blood Urea Nitrogen 8 mg/dL (7-17); Calcium 9.4 mg/dL (8.4-10.2); Carbon Dioxide 22 mmol/L (22-30); Chloride 107 mmol/L (98-107); Glucose 102 mg/dL (74-99); Non-African American GFR(CKD) >90 (>60 ml/min/1.73 sqM); Potassium 3.4 mmol/L (3.5-5.1); Sodium 139 mmol/L (137-145); Total Bilirubin 0.4 mg/dL (0.2-1.3); Total Protein 6.6 g/dL (6.3-8.2)
--- NOTE | 2022-09-25 08:02 | US ---
EXAMINATION TYPE: Ultrasound OB <= 14 week fetus DATE OF EXAM: 09/25/2022 7:40 AM COMPARISON: None CLINICAL HISTORY: 27-year-old female Vaginal bleeding and pelvic pain in . Spotting with catherine ts since yesterday. Patient states she has a yeast infection. EXAM PERFORMED: Transabdominal (TA) FINDINGS: EXAM MEASUREMENTS: GESTATIONAL AGE / DATING Physician Established: Not yet established Dates by LMP: (11 weeks/2 days) EDC: 04/14/2023 Dates by First Scan: No previous this is first scan Dates by Current Scan for: (6 weeks/5 days) EDC: 05/16/2023 MATERNAL ANATOMY Uterus: 7.7 x 5.6 x 5.1 cm Right Ovary: 2.5 x 1.5 x 1.2 cm Left Ovary: 3.7 x 2.8 x 2.0 cm Post CDS / Adnexa: no free fluid Presence of free fluid: no Presence of corpus luteal cyst: left ovary = 2.1 x 2.1 x 2.2 cm Presence of subchorionic bleed: 0.9 x 0.6 x 0.4 cm GESTATION / SURVEY CRL: Not visualized at time of scan MSD: 1.8 cm (6 weeks/5 days) Yolk Sac (normal less than 6mm): Not visualized at time fo scan IUP: No IUP seen at this time Date of LMP: 07/08/2022, Beta HcG (if available): Not available at time of scan Supervisor Lump Room notes: Possible GS visualized. No YS or CRL visualized at time of scan. IMPRESSION: Possible gestational sac with MSD of 18 mm. This would date the at 6 weeks 5 days. By trans abdominal scanning, a yolk sac should become apparent with an MSD of 20 mm. Recommend serial beta-hCG and appropriate ultrasound follow-up to ensure the appearance of a normal pole with cardiac ac tivity. Failed and pseudogestational sac of a nonvisualized ectopic still need to be excluded at this time. We note the discordance of dates with patient's LMP.
[2022-09-25 08:16] LABS: HCG,Quantitative Serum 3674.8 mIU/mL
[2022-09-25 08:54] LABS: Appearance,Urine Cloudy (Clear); Bacteria,Urine Occasional /hpf; Bilirubin,Urine Negative (Negative); Blood,Urine Large (Negative); Color,Urine Red; Glucose,Urine (UA) Negative (Negative); Ketones,Urine Negative (Negative); Leukocyte Esterase,Urine Large (Negative); Mucus,Urine Rare /hpf; Nitrite,Urine Negative (Negative); PH, Urine 6.5 (5.0-8.0); Protein,Urine 1+ (Negative); RBC,Urine >182 /hpf (0-5); Specific Gravity,Urine 1.016 (1.001-1.035); Squamous Epithelial Cell,Urine 45 /hpf (0-4); Urobilinogen,Urine <2.0 mg/dL (<2.0); WBC,Urine 44 /hpf (0-5)
== END 2022-09-25 09:12 | disposition home or self-care (01) ==
LOC: EC 05:58
DX: O20.0 Threatened abortion (principal); Z3A.11 11 weeks gestation of pregnancy
CPT/HCPCS: 36415; 76801; 80053; 81001; 84702; 85025; 86900; 86901; 87086; 99284

== ENCOUNTER 2023-01-06 10:53 | Emergency (ER) | payer BC ==
[2023-01-06 11:17] VITALS: PULSE 95
[2023-01-06] MEDS ORDERED: ONDANSETRON 4 MG/2 ML VIAL IVP STA (11:18)
[2023-01-06] MEDS ORDERED: SODIUM CHLORIDE 0.9% 2,000 ML IV STA (11:18)
[2023-01-06 11:49] LABS: Basophils % (A) 0 %; Eosinophils % (A) 0 %; HCT 46.2 % (34.0-46.0); Lymphocytes # (A) 1.4 k/uL (1.0-4.8); Lymphocytes % (A) 16 %; MCH 33.5 pg (25.0-35.0); MCHC 34.6 g/dL (31.0-37.0); Mean Platelet Volume 9.2; Monocytes # (A) 0.4 k/uL (0-1.0); Monocytes % (A) 5 %; Neutrophils % (A) 78 %; Platelet Count 221 k/uL (150-450); RBC 4.77 m/uL (3.80-5.40); RDW 11.8 % (11.5-15.5)
[2023-01-06 12:10] LABS: ALT 30 U/L (4-34); AST 23 U/L (14-36); African American GFR (CKD) >90 (>60 ml/min/1.73 sqM); Albumin 4.5 g/dL (3.5-5.0); Alkaline Phosphatase 84 U/L (38-126); Anion Gap 9 mmol/L; Blood Urea Nitrogen 10 mg/dL (7-17); Calcium 9.4 mg/dL (8.4-10.2); Carbon Dioxide 26 mmol/L (22-30); Chloride 105 mmol/L (98-107); Glucose 98 mg/dL (74-99); Lipase 44 U/L (23-300); Non-African American GFR(CKD) >90 (>60 ml/min/1.73 sqM); Potassium 4.1 mmol/L (3.5-5.1); Sodium 140 mmol/L (137-145); Total Bilirubin 0.7 mg/dL (0.2-1.3); Total Protein 7.2 g/dL (6.3-8.2)
[2023-01-06 13:00] LABS: Appearance,Urine Cloudy (Clear); Bacteria,Urine Rare /hpf; Bilirubin,Urine Negative (Negative); Blood,Urine Negative (Negative); Color,Urine Yellow; Glucose,Urine (UA) Negative (Negative); Ketones,Urine 2+ (Negative); Leukocyte Esterase,Urine Large (Negative); Mucus,Urine Few /hpf; Nitrite,Urine Negative (Negative); Protein,Urine Trace (Negative); RBC,Urine 4 /hpf (0-5); Specific Gravity,Urine 1.021 (1.001-1.035); Squamous Epithelial Cell,Urine 14 /hpf (0-4); Urobilinogen,Urine <2.0 mg/dL (<2.0); WBC,Urine 2 /hpf (0-5)
[2023-01-06 13:03] LABS: HCG,Quantitative Serum 24471.9 mIU/mL
[2023-01-06 13:13] VITALS: RESP 18
--- NOTE | 2023-01-06 13:18 | ED ---
Nausea/Vomiting/Diarrhea HPI - General Chief complaint: Nausea/Vomiting/Diarrhea Stated complaint: Vomiting, 6 wks Time Seen by Provider: 01/06/23 11:18 Source: patient, RN notes reviewed Mode of arrival: ambulatory Limitations: no limitations - History of Present Illness Initial comments: 27-year-old female presents emergency dept with chief complaint of nausea vomiting early . Patient states that she's had issues with her prior nausea vomiting. Patient is A2 scheduled see her RACK PRODUCTION WORKER. Patient denies any abdominal pain no vaginal bleeding or vaginal discharge or associated symptoms. - Related Data Previous Rx's Medication Instructions Recorded Ondansetron Odt [Zofran Odt] 4 mg PO Q8HR PRN #14 tab 01/06/23 Allergies Allergy/AdvReac Type Severity Reaction Status Date / Time No Known Allergies Allergy Verified 01/06/23 12:04 Review of Systems ROS Statement: Those systems with pertinent positive or pertinent negative responses have been documented in the HPI. ROS Other: All systems not noted in ROS Statement are negative. Past Medical History Past Medical History: No Reported History Additional Past Medical History / Comment(s): Obstetric history: First was a spontaneous . Second was a NVD at 40 weeks. This is her third . She's had care with me since 11 weeks gestation. Blood type is O+, abs negative, rubella immune, RPR nonreactive, hep is B-, HIV nonreactive. declined quad screen, normal anatomy ultrasound. Normal 1 hour glucose tolerance test. GBS negative. History of Any Multi-Drug Resistant Organisms: None Reported Past Surgical History: No Surgical Hx Reported Past Anesthesia/Blood Transfusion Reactions: No Reported Reaction Past Psychological History: No Psychological Hx Reported Smoking Status: Never smoker Past Alcohol Use History: None Reported Past Drug Use History: None Reported - Past Family History Father Family Medical History: No Reported History General Exam Limitations: no limitations General appearance: alert, in no apparent distress Head exam: Present: atraumatic, normocephalic, normal inspection Eye exam: Present: normal appearance, PERRL, EOMI. Absent: scleral icterus, conjunctival injection, periorbital swelling ENT exam: Present: normal exam, mucous membranes moist Cardiovascular Exam: Present: regular rate, normal rhythm, normal heart sounds. Absent: systolic murmur, diastolic murmur, rubs, gallop, clicks GI/Abdominal exam: Present: soft, normal bowel sounds. Absent: distended, tenderness, guarding, rebound, rigid Neurological exam: Present: alert Course Vital Signs 01/06/23 11:15 Temperature 98.6 F Pulse Rate 95 Respiratory 20 Rate Blood Pressure 140/84 O2 Sat by Pulse 97 Oximetry Medical Decision Making - Medical Decision Making Was pt. sent in by a medical professional or institution (, PA, COMMUNITY DEVELOPMENT AIDE, urgent care, hospital, or [facility]...) When possible be specific @ -No Did you speak to anyone other than the patient for history (EMS, parent, family, police, friend...)? What history was obtained from this source @ -No Did you review nursing and triage notes (agree or disagree)? Why? @ -I reviewed and agree with nursing and triage notes Were old charts reviewed (outside hosp., previous admission, EMS record, old EKG, old radiological studies, urgent care reports/EKG's, [facility] records)? Report findings @ -No old charts were reviewed Differential Diagnosis (chest pain, altered mental status, abdominal pain women, abdominal pain men, vaginal bleeding, weakness, fever, dyspnea, syncope, headache, dizziness, GI bleed, back pain, seizure, CVA, palpatations, mental health, musculoskeletal)? @ -Differential Abdominal Pain Women: Appendicitis, Cholecystitis, diverticulosis, ischemic bowel, pancreatitis, hepatitis, UTI, gastroenteritis, AAA, incarcerated hernia, bowel obstruction, constipation, inflammatory bowel, hepatitis, peptic ulcer disease, splenic infarction, perforated viscus, vulvitis, ovarian torsion, PID, kidney stone, placenta abruption, this is not meant to be an all-inclusive listble EKG interpreted by me (3pts min.). @ -None X-rays interpreted by me (1pt min.). @ -None done CT interpreted by me (1pt min.). @ -None done U/S interpreted by me (1pt. min.). @ -None done What testing was considered but not performed or refused? (CT, X-rays, U/S, labs)? Why? @ -Considered ultrasound outpatient has no abdominal pain What meds were considered but not given or refused? Why? @ -None Did you discuss the management of the patient with other professionals (professionals i.e. , JODEE, COMMUNITY DEVELOPMENT AIDE, lab, RT, psych nurse, adoption social worker, manager fleet, t eacher, credit or loans officer, block and case maker)? Give summary @ -No Was smoking cessation discussed for >3mins.? @ -No Was critical care preformed (if so, how long)? @ -No Were there social determinants of health that impacted care today? How? (Homelessness, low income, unemployed, alcoholism, drug addiction, transportation, low edu. Level, literacy, decrease access to med. care, half-way, rehab)? @ -No Was there de-escalation of care discussed even if they declined (Discuss DNR or withdrawal of care, Hospice)? DNR status @ -No What co-morbidities impacted this encounter? (DM, HTN, Smoking, COPD, CAD, Cancer, CVA, ARF, Chemo, Hep., AIDS, mental health diagnosis, sleep apnea, morbid obesity)? @ -None Was patient admitted / discharged? Hospital course, mention meds given and ro alice, prescriptions, significant lab abnormalities, going to OR and other pertinent info. @ -Discharged patient feels improved after IV fluids and antiemetics. Patient is requesting Zofran she's taken with her prior pregnancies. Patient discharged in stable condition. Patient rechecked urinalysis with RACK PRODUCTION WORKER. Patient will monitor blood pressure at home. Undiagnosed new problem with uncertain prognosis? @ -No Drug Therapy requiring intensive monitoring for toxicity (Heparin, Nitro, Insulin, Cardizem)? @ -No Were any procedures done? @ -No Diagnosis/symptom? @ -Nausea vomiting Acute, or Chronic, or Acute on Chronic? @ -Acute Uncomplicated (without systemic symptoms) or Complicated (systemic symptoms)? @ -uncomplicated Side effects of treatment? @ -No Exacerbation, Progression, or Severe Exacerbation? @ -No Poses a threat to life or bodily function? How? (Chest pain, [place], [place], pneumonia, PE, COPD, DKA, ARF, appy, cholecystitis, CVA, Diverticulitis, Homicidal, Suicidal, threat to staff... and all critical care pts) @ -No - Lab Data Result diagrams: 01/06/23 11:21 01/06/23 11:21 Lab Results 01/06/23 01/06/23 01/06/23 Range/Units 11:21 11:21 11:21 WBC 9.0 (3.8-10.6) k/uL RBC 4.77 (3.80-5.40) m/uL Hgb 16.0 (11.4-16.0) gm/dL Hct 46.2 H (34.0-46.0) % MCV 97.0 (80.0-100.0) fL MCH 33.5 (25.0-35.0) pg MCHC 34.6 (31.0-37.0) g/dL RDW 11.8 (11.5-15.5) % Plt Count 221 (150-450) k/uL MPV 9.2 Neutrophils % 78 % Lymphocytes % 16 % Monocytes % 5 % Eosinophils % 0 % Basophils % 0 % Neutrophils # 7.0 (1.3-7.7) k/uL Lymphocytes # 1.4 (1.0-4.8) k/uL Monocytes # 0.4 (0-1.0) k/uL Eosinophils # 0.0 (0-0.7) k/uL Basophils # 0.0 (0-0.2) k/uL Sodium 140 (137-145) mmol/L Potassium 4.1 (3.5-5.1) mmol/L Chloride 105 (98-107) mmol/L Carbon Dioxide 26 (22-30) mmol/L Anion Gap 9 mmol/L BUN 10 (7-17) mg/dL Creatinine 0.69 (0.52-1.04) mg/dL Est GFR (CKD-EPI)AfAm >90 (>60 ml/min/1.73 sqM) Est GFR (CKD-EPI)NonAf >90 (>60 ml/min/1.73 sqM) Glucose 98 (74-99) mg/dL Calcium 9.4 (8.4-10.2) mg/dL Total Bilirubin 0.7 (0.2-1.3) mg/dL AST 23 (14-36) U/L ALT 30 (4-34) U/L Alkaline Phosphatase 84 (38-126) U/L Total Protein 7.2 (6.3-8.2) g/dL Albumin 4.5 (3.5-5.0) g/dL Lipase 44 (23-300) U/L HCG, Quant 15610.9 mIU/mL Urine Color Yellow Urine Appearance Cloudy H (Clear) Urine pH 7.0 (5.0-8.0) Ur Specific [place] 1.021 (1.001-1.035) Urine Protein Trace H (Negative) Urine Glucose (UA) Negative (Negative) Urine Ketones 2+ H (Negative) Urine Blood Negative (Negative) Urine Nitrite Negative (Negative) Urine Bilirubin Negative (Negative) Urine Urobilinogen <2.0 (<2.0) mg/dL Ur Leukocyte Esterase Large H (Negative) Urine RBC 4 (0-5) /hpf Urine WBC 2 (0-5) /hpf Ur Squamous Epith Cells 14 H (0-4) /hpf Urine Bacteria Rare H (None) /hpf Urine Mucus Few H (None) /hpf Disposition Clinical Impression: Nausea & vomiting, Disposition: HOME SELF-CARE Condition: Stable Instructions (If sedation given, give patient instructions): Acute Nausea and Vomiting (ED) Additional Instructions: Please return to the Emergency Department if symptoms worsen or any other concerns. Prescriptions: Ondansetron Odt [Zofran Odt] 4 mg PO Q8HR PRN #14 tab PRN Reason: Nausea Is patient prescribed a controlled substance at d/c from ED?: No Referrals: Anthony Horn MD [Primary Care Provider] - 1-2 days Time of Disposition: 13:20
[2023-01-06 14:01] VITALS: BP 148/96; TEMP 99
== END 2023-01-06 14:01 | disposition home or self-care (01) ==
LOC: EC 10:53
DX: O21.9 Vomiting of pregnancy, unspecified (principal); Z3A.01 Less than 8 weeks gestation of pregnancy
CPT/HCPCS: 36415; 80053; 83690; 85025; 81001; 84702; 99284; 96374; 96361 ×2; J2405

== ENCOUNTER 2023-01-11 07:20 | Emergency (ER) | payer BC ==
[2023-01-11] MEDS ORDERED: SODIUM CHLORIDE 0.9% 1,000 ML IV ONE (07:37)
[2023-01-11] MEDS ORDERED: SODIUM CHLORIDE 0.9% 500 ML 500 ML IV ONE (07:37)
[2023-01-11] MEDS ORDERED: ONDANSETRON 4 MG/2 ML VIAL IVP STA (07:37)
--- NOTE | 2023-01-11 07:40 | ED ---
General Adult HPI - General Chief complaint: Nausea/Vomiting/Diarrhea Stated complaint: N/V,7weeks Time Seen by Provider: 01/11/23 07:25 Source: patient, RN notes reviewed, old records reviewed Mode of arrival: ambulatory Limitations: no limitations - History of Present Illness Initial comments: This is a 27-year-old female who presents emergency Department stating that she is 7 weeks . Patient states she's been vomiting since her last visit about a week ago. Patient states she ran out of Zofran now she can't keep anything down. Patient states going on for about 24 hours. Patient denies any vaginal bleeding. Patient denies any abdominal pain or abdominal cramping. Patient has a fissure hematuria urinary frequency. Patient has any back pain. Patient denies any recent fever chills or cough. - Related Data Previous Rx's Medication Instructions Recorded Ondansetron Odt [Zofran Odt] 4 mg PO Q8HR PRN #14 tab 01/06/23 Ondansetron [Zofran] 4 mg PO Q8HR PRN #10 tab 01/11/23 Allergies Allergy/AdvReac Type Severity Reaction Status Date / Time No Known Allergies Allergy Verified 01/11/23 07:25 Review of Systems ROS Statement: Those systems with pertinent positive or pertinent negative responses have been documented in the HPI. ROS Other: All systems not noted in ROS Statement are negative. Past Medical History Past Medical History: No Reported History Additional Past Medical History / Comment(s): Obstetric history: First was a spontaneous . Second was a NVD at 40 weeks. This is her third . She's had care with me since 11 weeks gestation. Blood type is O+, abs negative, rubella immune, RPR nonreactive, hep is B-, HIV nonreactive. declined quad screen, normal anatomy ultrasound. Normal 1 hour glucose tolerance test. GBS negative. History of Any Multi-Drug Resistant Organisms: None Reported Past Surgical History: No Surgical Hx Reported Past Anesthesia/Blood Transfusion Reactions: No Reported Reaction Past Psychological History: No Psychological Hx Reported Smoking Status: Never smoker Past Alcohol Use History: None Reported Past Drug Use History: None Reported - Past Family History Father Family Medical History: No Reported History General Exam - General Exam Comments Initial Comments: GENERAL: Patient is well-developed and well-nourished. Patient is nontoxic and well- hydrated and is in mild distress. ENT: Neck is soft and supple. No significant lymphadenopathy is noted. Oropharynx is clear. Dry mucous membranes. Neck has full range of motion without eliciting any pain. EYES: The sclera were anicteric and conjunctiva were pink and moist. Extraocular movements were intact and pupils were equal round and reactive to light. Eyelids were unremarkable. PULMONARY: Unlabored respirations. Good breath sounds bilaterally. No audible rales rhonchi or wheezing was noted. CARDIOVASCULAR: There is a regular rate and rhythm without any murmurs gallops or rubs. ABDOMEN: Soft and nontender with normal bowel sounds. SKIN: Skin is clear with no lesions or rashes and otherwise unremarkable. NEUROLOGIC: Patient is alert and oriented x3. Cranial nerves II through XII are grossly intact. Motor and sensory are also intact. Normal speech, volume and content. Symmetrical smile. MUSCULOSKELETAL: Normal extremities with adequate strength and full range of motion. LYMPHATICS: No significant lymphadenopathy is noted PSYCHIATRIC: Normal psychiatric evaluation. Limitations: no limitations Course Vital Signs 01/11/23 07:25 Temperature 98.7 F Pulse Rate 108 H Respiratory 20 Rate Blood Pressure 141/86 O2 Sat by Pulse 98 Oximetry Medical Decision Making - Medical Decision Making Was pt. sent in by a medical professional or institution (, PA, ALL TERRAIN VEHICLE RACER, urgent care, hospital, or alf...) When possible be specific @ -No Did you speak to anyone other than the patient for history (EMS, parent, family, police, friend...)? What history was obtained from this source @ -No Did you review nursing and triage notes (agree or disagree)? Why? @ -I reviewed and agree with nursing and triage notes Were old charts reviewed (outside hosp., previous admission, EMS record, old EKG, old radiological studies, urgent care reports/EKG's, alf records)? Report findings @ -Prior lab work from prior charts on this patient Differential Diagnosis (chest pain, altered mental status, abdominal pain women, abdominal pain men, vaginal bleeding, weakness, fever, dyspnea, syncope, headache, dizziness, GI bleed, back pain, seizure, CVA, palpatations, mental health, musculoskeletal)? @ -Hyperemesis , viral syndrome, acute vomiting EKG interpreted by me (3pts min.). @ -As above X-rays interpreted by me (1pt min.). @ -None done CT interpreted by me (1pt min.). @ -None done U/S interpreted by me (1pt. min.). @ -None done What testing was considered but not performed or refused? (CT, X-rays, U/S, labs)? Why? @ -None What meds were considered but not given or refused? Why? @ -None Did you discuss the management of the patient with other professionals (professionals i.e. , PA, ALL TERRAIN VEHICLE RACER, lab, RT, psych nurse, social services designee, chuck boner, teacher, lead security officer, trimming caser)? Give summary @ -No Was smoking cessation discussed for >3mins.? @ -No Was critical care preformed (if so, how long)? @ -No Were there social determinants of health that impacted care today? How? (Homelessness, low income, unemployed, alcoholism, drug addiction, transportation, low edu. Level, literacy, decrease access to med. care, senior living, rehab)? @ -No Was there de-escalation of care discussed even if they declined (Discuss DNR or withdrawal of care, Hospice)? DNR status @ -No What co-morbidities impacted this encounter? (DM, HTN, Smoking, COPD, CAD, Can cer, CVA, ARF, Chemo, Hep., AIDS, mental health diagnosis, sleep apnea, morbid obesity)? @ -None Was patient admitted / discharged? Hospital course, mention meds given and route, prescriptions, significant lab abnormalities, going to OR and other pertinent info. @ -Patient was given Zofran and a liter of fluid and she was feeling considerab ly better. Patient will be sent home with some Zofran and told to follow-up with her INFORMATION SYSTEMS PLANNER Undiagnosed new problem with uncertain prognosis? @ -No Drug Therapy requiring intensive monitoring for toxicity (Heparin, Nitro, Insulin, Cardizem)? @ -No Were any procedures done? @ -No Diagnosis/symptom? @ -Hyperemesis Acute, or Chronic, or Acute on Chronic? @ -Acute Uncomplicated (without systemic symptoms) or Complicated (systemic symptoms)? @ -Complicated Side effects of treatment? @ -No Exacerbation, Progression, or Severe Exacerbation? @ -No Poses a threat to life or bodily function? How? (Chest pain, [place], [place], pneumonia, PE, COPD, DKA, ARF, appy, cholecystitis, CVA, Diverticulitis, Homicidal, Suicidal, threat to staff... and all critical care pts) @ -No - Lab Data Result diagrams: 01/11/23 07:49 01/11/23 08:35 Lab Results 01/11/23 01/11/23 Range/Units 07:49 08:35 WBC 8.1 (3.8-10.6) k/uL RBC 4.58 (3.80-5.40) m/uL Hgb 15.6 (11.4-16.0) gm/dL Hct 43.2 (34.0-46.0) % MCV 94.3 (80.0-100.0) fL MCH 33.9 (25.0-35.0) pg MCHC 36.0 (31.0-37.0) g/dL RDW 12.2 (11.5-15.5) % Plt Count 209 (150-450) k/uL MPV 9.8 Neutrophils % 72 % Lymphocytes % 21 % Monocytes % 4 % Eosinophils % 1 % Basophils % 0 % Neutrophils # 5.8 (1.3-7.7) k/uL Lymphocytes # 1.7 (1.0-4.8) k/uL Monocytes # 0.4 (0-1.0) k/uL Eosinophils # 0.1 (0-0.7) k/uL Basophils # 0.0 (0-0.2) k/uL Sodium 138 (137-145) mmol/L Potassium 3.6 (3.5-5.1) mmol/L Chloride 110 H (98-107) mmol/L Carbon Dioxide 16 L (22-30) mmol/L Anion Gap 12 mmol/L BUN 10 (7-17) mg/dL Creatinine 0.56 (0.52-1.04) mg/dL Est GFR (CKD-EPI)AfAm >90 (>60 ml/min/1.73 sqM) Est GFR (CKD-EPI)NonAf >90 (>60 ml/min/1.73 sqM) Glucose 93 (74-99) mg/dL Calcium 8.9 (8.4-10.2) mg/dL Total Bilirubin 1.2 (0.2-1.3) mg/dL AST 25 (14-36) U/L ALT 22 (4-34) U/L Alkaline Phosphatase 80 (38-126) U/L Total Protein 6.5 (6.3-8.2) g/dL Albumin 4.1 (3.5-5.0) g/dL HCG, Qual Detected Disposition Clinical Impression: Hyperemesis gravidarum Disposition: HOME SELF-CARE Condition: Good Instructions (If sedation given, give patient instructions): Hyperemesis Gravidarum (ED) Prescriptions: Ondansetron [Zofran] 4 mg PO Q8HR PRN #10 tab PRN Reason: Nausea And Vomiting Is patient prescribed a controlled substance at d/c from ED?: No Referrals: Anthony Horn MD [Primary Care Provider] - 1-2 days
[2023-01-11 08:02] LABS: Basophils % (A) 0 %; Eosinophils # (A) 0.1 k/uL (0-0.7); Eosinophils % (A) 1 %; HCT 43.2 % (34.0-46.0); HGB 15.6 gm/dL (11.4-16.0); Lymphocytes # (A) 1.7 k/uL (1.0-4.8); Lymphocytes % (A) 21 %; MCH 33.9 pg (25.0-35.0); MCV 94.3 fL (80.0-100.0); Mean Platelet Volume 9.8; Monocytes # (A) 0.4 k/uL (0-1.0); Monocytes % (A) 4 %; Neutrophils # (A) 5.8 k/uL (1.3-7.7); Neutrophils % (A) 72 %; Platelet Count 209 k/uL (150-450); RBC 4.58 m/uL (3.80-5.40); RDW 12.2 % (11.5-15.5); WBC 8.1 k/uL (3.8-10.6)
[2023-01-11] MEDS ORDERED: ONDANSETRON 4 MG ODT STARTER PACK 2 TAB BTL PO STA (08:55)
[2023-01-11 09:30] LABS: HCG,Qualitative Serum Detected
[2023-01-11 09:31] LABS: ALT 22 U/L (4-34); AST 25 U/L (14-36); African American GFR (CKD) >90 (>60 ml/min/1.73 sqM); Albumin 4.1 g/dL (3.5-5.0); Alkaline Phosphatase 80 U/L (38-126); Anion Gap 12 mmol/L; Blood Urea Nitrogen 10 mg/dL (7-17); Calcium 8.9 mg/dL (8.4-10.2); Carbon Dioxide 16 mmol/L (22-30); Chloride 110 mmol/L (98-107); Glucose 93 mg/dL (74-99); Non-African American GFR(CKD) >90 (>60 ml/min/1.73 sqM); Potassium 3.6 mmol/L (3.5-5.1); Sodium 138 mmol/L (137-145); Total Bilirubin 1.2 mg/dL (0.2-1.3); Total Protein 6.5 g/dL (6.3-8.2)
[2023-01-11 10:30] VITALS: BP 124/85; PULSE 87; RESP 16; TEMP 97.9
== END 2023-01-11 10:30 | disposition home or self-care (01) ==
LOC: EC 07:20
DX: O21.0 Mild hyperemesis gravidarum (principal); Z3A.01 Less than 8 weeks gestation of pregnancy
CPT/HCPCS: 36415; 80053; 85025; 84703; 99284; 96374; 96361 ×3; J2405; S0119

== ENCOUNTER 2023-01-25 18:56 | Emergency (ER) | payer BC ==
[2023-01-25 19:24] VITALS: RESP 18
[2023-01-25] MEDS ORDERED: METOCLOPRAMIDE 5 MG/ML 2 ML VIAL IVP STA (19:39)
[2023-01-25] MEDS ORDERED: SODIUM CHLORIDE 0.9% 2,000 ML IV STA (19:39)
[2023-01-25 20:25] LABS: Basophils % (A) 0 %; Eosinophils % (A) 0 %; HCT 45.6 % (34.0-46.0); HGB 15.9 gm/dL (11.4-16.0); Lymphocytes # (A) 1.8 k/uL (1.0-4.8); Lymphocytes % (A) 20 %; MCH 33.9 pg (25.0-35.0); MCHC 34.8 g/dL (31.0-37.0); MCV 97.3 fL (80.0-100.0); Mean Platelet Volume 9.7; Monocytes # (A) 0.5 k/uL (0-1.0); Monocytes % (A) 5 %; Neutrophils # (A) 6.5 k/uL (1.3-7.7); Neutrophils % (A) 73 %; Platelet Count 218 k/uL (150-450); RBC 4.68 m/uL (3.80-5.40); RDW 11.8 % (11.5-15.5); WBC 8.8 k/uL (3.8-10.6)
[2023-01-25 20:43] LABS: ALT 23 U/L (4-34); AST 23 U/L (14-36); African American GFR (CKD) >90 (>60 ml/min/1.73 sqM); Albumin 4.6 g/dL (3.5-5.0); Alkaline Phosphatase 67 U/L (38-126); Anion Gap 13 mmol/L; Blood Urea Nitrogen 7 mg/dL (7-17); Calcium 9.7 mg/dL (8.4-10.2); Carbon Dioxide 19 mmol/L (22-30); Chloride 104 mmol/L (98-107); Glucose 88 mg/dL (74-99); Non-African American GFR(CKD) >90 (>60 ml/min/1.73 sqM); Potassium 3.7 mmol/L (3.5-5.1); Sodium 136 mmol/L (137-145); Total Protein 7.4 g/dL (6.3-8.2)
--- NOTE | 2023-01-25 20:59 | US ---
EXAMINATION TYPE: Transabdominal DATE OF EXAM: 01/25/2023 8:27 PM COMPARISON: NONE CLINICAL INDICATION: Female, 27 years old with history of pain; vomiting during pg. Pt states she sta rted getting cramping yesterday. EXAM PERFORMED: Transabdominal (TA) EXAM MEASUREMENTS: GESTATIONAL AGE / DATING Physician Established: Not yet established Dates by LMP: (8 weeks/5 days) EDC: 09/01/23 Dates by First Scan: No previous this is first scan Dates by Current Scan for: (9 weeks/0 days) EDC: 08/30/23 MATERNAL ANATOMY Uterus: 9.0 x 8.3 x 5.7cm Right Ovary: 2.6 x 1.9 x 2.0cm Left Ovary: 1.7 x 1.8 x 1.4cm Post CDS / Adnexa: wnl Presence of free fluid: no Presence of corpus luteal cyst: yes in rt ovary measuring 1.4 x 1.1 x1.2cm Presence of subchorionic bleed: Yes measuring 1.4 x 1.3 x 0.8cm GESTATION / SURVEY CRL: 2.35cm (9 weeks/0 days) Yolk Sac (normal less than 6mm): Not well visualized Heart Rate: 174 bpm Rhythm: Normal IUP: Viable IUP Date of LMP: 11/25/22 Beta HcG (if available): Not available at this time Viable IUP seen measuring 9weeks 0days with a HR of 174bpm. IMPRESSION: 1. Single live intrauterine gestation with a calculated gestational age of 9 weeks and 0 days. 2. Small subchorionic hemorrhage.
--- NOTE | 2023-01-25 21:08 | ED ---
General Adult HPI - General Chief complaint: Nausea/Vomiting/Diarrhea Stated complaint: Vomiting/9 weeks preg Time Seen by Provider: 01/25/23 19:35 Source: patient, RN notes reviewed Mode of arrival: ambulatory Limitations: no limitations - History of Present Illness Initial comments: This a 27-year-old female presents emergency Department chief complaint nausea vomiting early . Patient states that she's been having ongoing issues with Zofran has been working but over the last 2 days she started having vomiting again. Patient states she is mild abdominal cramping no bleeding. Patient is scheduled for open joint appointment February 09. Patient denies any fevers chills no dysuria she states she just feels very dehydrated she did contact on-call [facility] Dr. Mccloud recommended come emergency department. - Related Data Previous Rx's Medication Instructions Recorded Ondansetron Odt [Zofran Odt] 4 mg PO Q8HR PRN #14 tab 01/06/23 Ondansetron [Zofran] 4 mg PO Q8HR PRN #10 tab 01/11/23 Allergies Allergy/AdvReac Type Severity Reaction Status Date / Time No Known Allergies Allergy Verified 01/11/23 07:25 Review of Systems ROS Statement: Those systems with pertinent positive or pertinent negative responses have been documented in the HPI. ROS Other: All systems not noted in ROS Statement are negative. Past Medical History Past Medical History: No Reported History Additional Past Medical History / Comment(s): Obstetric history: First was a spontaneous . Second was a NVD at 40 weeks. This is her third . She's had care with me since 11 weeks gestation. Blood type is O+, abs negative, rubella immune, RPR nonreactive, hep is B-, HIV nonreactive. declined quad screen, normal anatomy ultrasound. Normal 1 hour glucose tolerance test. GBS negative. History of Any Multi-Drug Resistant Organisms: None Reported Past Surgical History: No Surgical Hx Reported Past Anesthesia/Blood Transfusion Reactions: No Reported Reaction Past Psychological History: No Psychological Hx Reported Smoking Status: Never smoker Past Alcohol Use History: None Reported Past Drug Use History: None Reported - Past Family History Father Family Medical History: No Reported History General Exam Limitations: no limitations General appearance: alert, in no apparent distress Head exam: Present: atraumatic, normocephalic, normal inspection Eye exam: Present: normal appearance, PERRL, EOMI. Absent: scleral icterus, conjunctival injection, periorbital swelling ENT exam: Absent: mucous membranes dry Neck exam: Present: normal inspection, full ROM. Absent: tenderness, meningismus, lymphadenopathy Respiratory exam: Present: normal lung sounds bilaterally. Absent: respiratory distress, wheezes, rales, rhonchi, stridor Cardiovascular Exam: Present: regular rate, normal rhythm, normal heart sounds. Absent: systolic murmur, diastolic murmur, rubs, gallop, clicks GI/Abdominal exam: Present: soft, normal bowel sounds. Absent: distended, tenderness, guarding, rebound, rigid Course Vital Signs 01/25/23 19:20 Temperature 99.0 F Pulse Rate 90 Respiratory 18 Rate Blood Pressure 138/86 O2 Sat by Pulse 97 Oximetry Medical Decision Making - Medical Decision Making Was pt. sent in by a medical professional or institution (JODEE Greco, LIAISON INSPECTION LABORATORY ASSISTANT, urgent care, hospital, or senior living...) When possible be specific @ -No Did you speak to anyone other than the patient for history (EMS, parent, family, police, friend...)? What history was obtained from this source @ -No Did you review nursing and triage notes (agree or disagree)? Why? @ -I reviewed and agree with nursing and triage notes Were old charts reviewed (outside hosp., previous admission, EMS record, old EKG, old radiological studies, urgent care reports/EKG's, senior living records)? Report findings @ -Reviewed prior laboratory studies reviewed Differential Diagnosis (chest pain, altered mental status, abdominal pain women, abdominal pain men, vaginal bleeding, weakness, fever, dyspnea, syncope, headache, dizziness, GI bleed, back pain, seizure, CVA, palpatations, mental health, musculoskeletal)? @ -Nausea vomiting, hyperemesis gravidarum, dehydration EKG interpreted by me (3pts min.). @ -None X-rays interpreted by me (1pt min.). @ -None done CT interpreted by me (1pt min.). @ -None done U/S interpreted by me (1pt. min.). @ -Old shunt OB shows 9 weeks 0 days heart rate 174 small subchronic hemorrhage What testing was considered but not performed or refused? (CT, X-rays, U/S, lab s)? Why? @ -None What meds were considered but not given or refused? Why? @ -None Did you discuss the management of the patient with other professionals (professionals i.e. DrEleni, PA, LIAISON INSPECTION LABORATORY ASSISTANT, lab, RT, psych nurse, social director, carrier washer, teacher, chief credit officer, home health care case manager)? Give summary @ -No Was smoking cessation discussed for >3mins.? @ -No Was critical care preformed (if so, how long)? @ -No Were there social determinants of health that impacted care today? How? (Homelessness, low income, unemployed, alcoholism, drug addiction, transportation, low edu. Level, literacy, decrease access to med. care, longterm, rehab)? @ -No Was there de-escalation of care discussed even if they declined (Discuss DNR or withdrawal of care, Hospice)? DNR status @ -No What co-morbidities impacted this encounter? (DM, HTN, Smoking, COPD, CAD, Cancer, CVA, ARF, Chemo, Hep., AIDS, mental health diagnosis, sleep apnea, morbid obesity)? @ -None Was patient admitted / discharged? Hospital course, mention meds given and route, prescriptions, significant lab abnormalities, going to OR and other pertinent info. @ -Discharge patient feels greatly improved after 2 L of IV fluid, Reglan patient will follow-up with [facility] see recurrent issue patient does have dehydration patient has contaminated urine with no urinary symptoms. Patient updated on ultrasound results Undiagnosed new problem with uncertain prognosis? @ -No Drug Therapy requiring intensive monitoring for toxicity (Heparin, Nitro, Insulin, Cardizem)? @ -No Were any procedures done? @ -No Diagnosis/symptom? @ -Hyperemesis gravidarum, dehydration Acute, or Chronic, or Acute on Chronic? @ -Acute Uncomplicated (without systemic symptoms) or Complicated (systemic symptoms)? @ -Uncomplicated Side effects of treatment? @ -No Exacerbation, Progression, or Severe Exacerbation? @ -No Poses a threat to life or bodily function? How? (Chest pain, [place], [place], pneumonia, PE, COPD, DKA, ARF, appy, cholecystitis, CVA, Diverticulitis, Homicidal, Suicidal, threat to staff... and all critical care pts) @ -No - Lab Data Result diagrams: 01/25/23 20:04 01/25/23 20:04 Lab Results 01/25/23 01/25/2301/25/23 Range/Units 20:04 20:04 20:52 WBC 8.8 (3.8-10.6) k/uL RBC 4.68 (3.80-5.40) m/uL Hgb 15.9 (11.4-16.0) gm/dL Hct 45.6 (34.0-46.0) % MCV 97.3 (80.0-100.0) fL MCH 33.9 (25.0-35.0) pg MCHC 34.8 (31.0-37.0) g/dL RDW 11.8 (11.5-15.5) % Plt Count 218 (150-450) k/uL MPV 9.7 Neutrophils % 73 % Lymphocytes % 20 % Monocytes % 5 % Eosinophils % 0 % Basophils % 0 % Neutrophils # 6.5 (1.3-7.7) k/uL Lymphocytes # 1.8 (1.0-4.8) k/uL Monocytes # 0.5 (0-1.0) k/uL Eosinophils # 0.0 (0-0.7) k/uL Basophils # 0.0 (0-0.2) k/uL Sodium 136 L (137-145) mmol/L Potassium 3.7 (3.5-5.1) mmol/L Chloride 104 (98-107) mmol/L Carbon Dioxide 19 L (22-30) mmol/L Anion Gap 13 mmol/L BUN 7 (7-17) mg/dL Creatinine 0.57 (0.52-1.04) mg/dL Est GFR (CKD-EPI)AfAm >90 (>60 ml/min/1.73 sqM) Est GFR (CKD-EPI)NonAf >90 (>60 ml/min/1.73 sqM) Glucose 88 (74-99) mg/dL Calcium 9.7 (8.4-10.2) mg/dL Total Bilirubin 1.0 (0.2-1.3) mg/dL AST 23 (14-36) U/L ALT 23 (4-34) U/L Alkaline Phosphatase 67 (38-126) U/L Total Protein 7.4 (6.3-8.2) g/dL Albumin 4.6 (3.5-5.0) g/dL Urine Color Yellow Urine Appearance Cloudy H (Clear) Urine pH 6.0 (5.0-8.0) Ur Specific [place] 1.032 (1.001-1.035) Urine Protein 1+ H (Negative) Urine Glucose (UA) Negative (Negative) Urine Ketones 4+ H (Negative) Urine Blood Negative (Negative) Urine Nitrite Negative (Negative) Urine Bilirubin Negative (Negative) Urine Urobilinogen 2.0 (<2.0) mg/dL Ur Leukocyte Esterase Large H (Negative) Urine RBC 2 (0-5) /hpf Urine WBC 15 H (0-5) /hpf Ur Squamous Epith Cells 19 H (0-4) /hpf Urine Mucus Many H (None) /hpf Disposition Clinical Impression: Hyperemesis gravidarum, Dehydration Disposition: HOME SELF-CARE Condition: Stable Instructions (If sedation given, give patient instructions): Hyperemesis Gravidarum (ED) Additional Instructions: Please return to the Emergency Department if symptoms worsen or any other concerns. Is patient prescribed a controlled substance at d/c from ED?: No Referrals: Anthony Horn MD [Primary Care Provider] - 1-2 days Time of Disposition: 21:22
[2023-01-25 21:29] LABS: Appearance,Urine Cloudy (Clear); Bilirubin,Urine Negative (Negative); Blood,Urine Negative (Negative); Color,Urine Yellow; Glucose,Urine (UA) Negative (Negative); Ketones,Urine 4+ (Negative); Leukocyte Esterase,Urine Large (Negative); Mucus,Urine Many /hpf; Nitrite,Urine Negative (Negative); Protein,Urine 1+ (Negative); RBC,Urine 2 /hpf (0-5); Specific Gravity,Urine 1.032 (1.001-1.035); Squamous Epithelial Cell,Urine 19 /hpf (0-4); WBC,Urine 15 /hpf (0-5)
[2023-01-25 21:54] VITALS: BP 121/69; PULSE 84; TEMP 98.8
== END 2023-01-25 21:55 | disposition home or self-care (01) ==
LOC: EC 18:56
DX: O99.281 Endocrine, nutritional and metabolic diseases complicating pregnancy, first trimester (principal); E86.0 Dehydration; O21.0 Mild hyperemesis gravidarum; Z3A.09 9 weeks gestation of pregnancy
CPT/HCPCS: 36415; 80053; 85025; 81001; 76801; 99284; 96374; 96361; J2765

== ENCOUNTER 2023-08-28 15:25 | Inpatient (IN) | payer BC ==
[2023-08-28] MEDS ORDERED: miSOPROStoL 200 MCG TAB PO PRN (17:04)
[2023-08-28] MEDS ORDERED: OXYTOCIN 10 UNIT/ML 1 ML VIAL IM PRN (17:04)
[2023-08-28] MEDS ORDERED: TERBUTALINE 1 MG/ML VIAL SQ PRN (17:04)
[2023-08-28] MEDS ORDERED: TRANEXAMIC 1,000 MG/100ML-NACL 1,000 MG in EMPTY BAG 1 BAG IV PRN (17:04)
[2023-08-28] MEDS ORDERED: METHYLERGONOVINE 0.2 MG/ML 1 ML AMP IM PRN (17:04)
[2023-08-28] MEDS ORDERED: LIDOCAINE 0.5% (PF) 5 MG/ML (50 ML SDV) SQ PRN (17:04)
[2023-08-28] MEDS ORDERED: CARBOPROST TROMETHAMINE 250 MCG/ML 1 ML AMP IM PRN (17:04)
[2023-08-28] MEDS: LACTATED RINGERS 1,000 ML IV SCH (17:34)
[2023-08-28 17:48] LABS: Basophils % (A) 0 %; Eosinophils # (A) 0.1 k/uL (0-0.7); Eosinophils % (A) 1 %; HCT 39.4 % (34.0-46.0); HGB 13.6 gm/dL (11.4-16.0); Lymphocytes # (A) 1.8 k/uL (1.0-4.8); Lymphocytes % (A) 16 %; MCH 34.5 pg (25.0-35.0); MCHC 34.6 g/dL (31.0-37.0); MCV 99.8 fL (80.0-100.0); Mean Platelet Volume 9.7; Monocytes # (A) 0.5 k/uL (0-1.0); Monocytes % (A) 5 %; Neutrophils # (A) 8.4 k/uL (1.3-7.7); Neutrophils % (A) 77 %; Platelet Count 182 k/uL (150-450); RBC 3.95 m/uL (3.80-5.40); RDW 12.7 % (11.5-15.5)
[2023-08-28] MEDS: CITRIC ACID-SODIUM CITRATE 15 ML CUP PO ONE (18:42)
[2023-08-28] MEDS ORDERED: OXYTOCIN 30 UNITS/500 ML NS 30 UNIT in SALINE 1 500ML.BAG IV SCH (19:00)
[2023-08-28] MEDS: OXYTOCIN 30 UNITS/500 ML NS 30 UNIT in SALINE 1 500ML.BAG IV SCH (20:29)
[2023-08-28] MEDS: NALBUPHINE 10 MG/ML (10 ML MDV) IV PRN (22:45)
--- NOTE | 2023-08-28 23:32 | P.HPOB ---
History of Present Illness H&P Date: 08/28/23 Chief Complaint: Contractions This is a 28-year-old female 5 para 2 with an estimated date of confinement of 08/31/2023, estimated gestational age of 39-4/7 weeks, who presents to labor and delivery with complaints of contractions that began about 1:00 this afternoon. She denied any rupture of membranes. care has been with Dr. Villarreal and has been uncomplicated. labs: Group B streptococcus-negative One hour Glucola-113 Hemoglobin-14.1 Blood type-O+ Rubella-immune RPR-nonreactive HIV-nonreactive Hepatitis C antibody-nonreactive Random glucose-92 Antibody screen-negative Hepatitis B surface antigen-negative Chlamydia/gonorrhea/Trichomonas-negative Obstetrical history: . History of 2 vaginal deliveries at term. She denies any complications. History of 2 spontaneous miscarriages. Gynecologic history: No history of sexually transmitted diseases. Social history: She is . She is a homemaker. Review of Systems Constitutional: Denies chills, Denies fever Eyes: denies blurred vision, denies pain Ears, nose, mouth and throat: Denies headache, Denies sore throat Cardiovascular: Denies chest pain, Denies shortness of breath Respiratory: Denies cough Gastrointestinal: Reports abdominal pain (Contractions) Genitourinary: Reports pelvic pain, Reports Musculoskeletal: Reports low back pain Integumentary: Denies pruritus, Denies rash Neurological: Denies numbness, Denies weakness Psychiatric: Denies anxiety, Denies depression Past Medical History Past Medical History: No Reported History History of Any Multi-Drug Resistant Organisms: None Reported Past Surgical History: No Surgical Hx Reported Past Anesthesia/Blood Transfusion Reactions: No Reported Reaction Past Psychological History: No Psychological Hx Reported Smoking Status: Never smoker Past Alcohol Use History: None Reported Past Drug Use History: None Reported - Past Family History Father Family Medical History: No Reported History Medications and Allergies Home Medications Medication Instructions Recorded Confirmed Type Vit No.179/Iron/Folic 1 each PO DAILY 08/28/23 08/28/23 History [ Tablet] Allergies Allergy/AdvReac Type Severity Reaction Status Date / Time No Known Allergies Allergy Verified 08/28/23 15:41 Exam Osteopathic Statement: *. No significant issues noted on an osteopathic structural exam other than those noted in the History and Physical/Consult. Vital Signs Temp Pulse Resp BP 08/28/23 15:40 97.0 F L 100 16 118/70 Intake and Output 08/28/23 08/28/23 08/29/23 14:59 22:59 06:59 Other: # Voids 1 Weight 96.615 kg Gen.: Well-developed well-nourished gravid female in no acute distress HEENT: Within normal limits Heart: Regular rate and rhythm Lungs: Clear to auscultation bilaterally Abdomen: Cervix: On admission was 4 cm/80%/-2 station. She had made change from 3 cm within an hour. heart tones: Category 1, reactive. Contractions: Every 4-6 minutes Extremities: Negative Homans Results Result Diagrams: 08/28/23 17:35 Abnormal Lab Results - Last 24 Hours (Table) 08/28/23 Range/Units 17:35 WBC 11.0 H (3.8-10.6) k/uL Neutrophils # 8.4 H (1.3-7.7) k/uL Assessment and Plan (1) 39 weeks gestation of Current Visit: Yes Status: Acute Code(s): Z3A.39 - 39 WEEKS GESTATION OF SNOMED Code(s): 17227369 Plan: Admission for active labor. Pain medication if desired. Expectant management. Oxytocin augmentation of labor if necessary.
--- NOTE | 2023-08-29 00:17 | P.PROBDLV ---
Vaginal Delivery Note - . Vaginal Delivery Note: The patient progressed to complete dilation after artificial rupture membranes with clear fluid noted. She was noted to be approximately 6-1/2 cm at that time. She did receive 1 dose of Nubain while in labor. Once reaching complete, she pushed for approximately 1 push and infant's head came to a crown. With one remaining push, the delivered across the perineum followed by the anterior shoulder. The remainder the easily delivered and was placed on mother's abdomen and then nose and mouth were bulb suctioned. Cord was clamped and cut and infant was taken to warmer for evaluation. A viable male was noted with scores of 8 at 1 minute and 9 at 5 minutes and weight of 8 pounds 7.8 ounces. Placenta delivered shortly thereafter, intact, with a three-vessel cord. Uterus contracted well after oxytocin was given and uterine massage was carried out. Inspection of the perineum revealed no perineal lacerations. Estimated blood loss is approximately 150 mL's. Both mother and are in stable condition.
[2023-08-29] MEDS ORDERED: HYDROCORTISONE 2.5% RECTAL CREAM 30 GM TUBE RECTAL PRN (01:36)
[2023-08-29] MEDS ORDERED: BENZOCAINE/MENTHOL SPRAY 1 GM/SPRAY AEROSOL TOPICAL PRN (01:36)
[2023-08-29] MEDS ORDERED: diphenhydrAMINE 25 MG CAP PO PRN (01:36)
[2023-08-29] MEDS ORDERED: ZOLPIDEM 5 MG TAB PO PRN (01:36)
[2023-08-29] MEDS ORDERED: LANOLIN CREAM 5 GM TUBE TOPICAL PRN (01:36)
[2023-08-29] MEDS ORDERED: SIMETHICONE 80 MG CHEWABLE PO PRN (01:36)
[2023-08-29] MEDS ORDERED: diphenhydrAMINE 50 MG/ML 1 ML VIAL IVP PRN ×2 (01:36)
[2023-08-29] MEDS ORDERED: diphenhydrAMINE 50 MG CAP PO PRN (01:36)
[2023-08-29] MEDS: IBUPROFEN 600 MG TAB PO PRN (05:54)
[2023-08-29 06:15] LABS: Basophils % (A) 0 %; Eosinophils % (A) 0 %; HCT 36.9 % (34.0-46.0); HGB 12.8 gm/dL (11.4-16.0); Lymphocytes # (A) 1.5 k/uL (1.0-4.8); Lymphocytes % (A) 10 %; MCH 34.5 pg (25.0-35.0); MCHC 34.8 g/dL (31.0-37.0); MCV 99.3 fL (80.0-100.0); Mean Platelet Volume 9.9; Monocytes # (A) 0.6 k/uL (0-1.0); Monocytes % (A) 4 %; Neutrophils # (A) 12.8 k/uL (1.3-7.7); Neutrophils % (A) 85 %; Platelet Count 164 k/uL (150-450); RBC 3.72 m/uL (3.80-5.40); RDW 13.2 % (11.5-15.5)
[2023-08-29] MEDS: SENNOSIDES-DOCUSATE SODIUM 1 EACH TAB PO SCH (08:00)
--- NOTE | 2023-08-29 08:41 | P.PN ---
Progress Note - Text Progress Note Date: 08/29/23 Patient is doing well. She is breast-feeding. She has no complaints. Will see Dr. Villarreal tomorrow.
[2023-08-29] MEDS: PRENATAL VIT-IRON-FOLIC ACID 1 EACH TABLET PO SCH (13:27)
[2023-08-29] MEDS: ACETAMINOPHEN TAB 325 MG TAB PO PRN (22:19)
--- NOTE | 2023-08-30 07:46 | P.DS ---
Providers Date of admission: 08/28/23 17:03 Expected date of discharge: 08/30/23 Attending physician: Pamela Villarreal Primary care physician: Stated None - Discharge Diagnosis(es) (1) Normal vaginal delivery Current Visit: Yes Status: Acute Hospital Course: Presented in active labor. She underwent a normal vaginal delivery. course was uneventful. She denies nausea, vomiting, chest pain, shortness of breath or calf pain. Patient will be discharged home day #1 in stable condition to follow-up with me in 6 weeks. Plan - Discharge Summary Discharge Rx Participant: Yes New Discharge Prescriptions: New Ibuprofen [Motrin] 600 mg PO Q6HR PRN #30 tab PRN Reason: Mild Pain Or Fever >= 100.5 No Action Vit No.179/Iron/Folic [ Tablet] 1 each PO DAILY Discharge Medication List Vit No.179/Iron/Folic [ Tablet] 1 each PO DAILY 08/28/23 [History] Ibuprofen [Motrin] 600 mg PO Q6HR PRN #30 tab 08/30/23 [Rx] Follow up Appointment(s)/Referral(s): Pamela Villarreal DO [Doctor of Osteopathic Medicine] - 10/12/23 1:15 pm (Follow- up with Dr. Villarreal at [facility].) Discharge Disposition: HOME SELF-CARE
[2023-08-30 08:34] VITALS: BP 112/77; PULSE 69; RESP 18; TEMP 98.6
== END 2023-08-30 13:40 | disposition home or self-care (01) | DRG 807 ==
LOC: FBPOP 15:25 → 4FBP 17:03
PROVIDERS: ADMIT Obstetrics & Gynecology; ATTEND Obstetrics & Gynecology
PROC: 10907ZC Drainage of Amniotic Fluid, Therapeutic from Products of Conception, Via Natural or Artificial Opening (ICD-10-PCS; 2023-08-28)
PROC: 10E0XZZ Delivery of Products of Conception, External Approach (ICD-10-PCS; principal; 2023-08-29)
DX: O80 Encounter for full-term uncomplicated delivery (principal); Z3A.39 39 weeks gestation of pregnancy; Z37.0 Single live birth
CPT/HCPCS: 59025; 85025; 86850; 86900; 86901; 99213

== ENCOUNTER 2024-09-25 19:04 | Emergency (ER) | payer BC ==
[2024-09-25] MEDS: SODIUM CHLORIDE 0.9% 1,000 ML IV SCH (20:55)
[2024-09-25] MEDS: ONDANSETRON 4 MG/2 ML VIAL IVP STA (20:56)
[2024-09-25 20:57] LABS: Basophils % (A) 0 %; Eosinophils # (A) 0.1 k/uL (0-0.7); Eosinophils % (A) 1 %; HCT 48.5 % (34.0-46.0); HGB 16.7 gm/dL (11.4-16.0); Lymphocytes # (A) 0.5 k/uL (1.0-4.8); Lymphocytes % (A) 3 %; MCH 32.7 pg (25.0-35.0); MCHC 34.5 g/dL (31.0-37.0); MCV 94.8 fL (80.0-100.0); Monocytes # (A) 0.3 k/uL (0-1.0); Monocytes % (A) 2 %; Neutrophils # (A) 16.3 k/uL (1.3-7.7); Neutrophils % (A) 94 %; Platelet Count 249 k/uL (150-450); RBC 5.12 m/uL (3.80-5.40); RDW 12.1 % (11.5-15.5); WBC 17.3 k/uL (3.8-10.6)
[2024-09-25 21:08] LABS: ALT 21 U/L (4-34); African American GFR (CKD) >90 (>60 ml/min/1.73 sqM); Anion Gap 17 mmol/L; Blood Urea Nitrogen 12 mg/dL (7-17); Calcium 10.2 mg/dL (8.4-10.2); Carbon Dioxide 17 mmol/L (22-30); Chloride 104 mmol/L (98-107); Glucose 133 mg/dL (74-99); Lipase 114 U/L (23-300); Non-African American GFR(CKD) >90 (>60 ml/min/1.73 sqM); Sodium 138 mmol/L (137-145); Total Bilirubin 1.2 mg/dL (0.2-1.3)
[2024-09-25 21:16] LABS: AST 26 U/L (14-36); Alkaline Phosphatase 74 U/L (38-126); Potassium 4.2 mmol/L (3.5-5.1); Total Protein 7.8 g/dL (6.3-8.2)
--- NOTE | 2024-09-25 21:40 | US ---
EXAMINATION TYPE: US OB limited DATE OF EXAM: 09/25/2024 COMPARISON: NONE for this CLINICAL INDICATION: Female, 29 years old with history of 8 weeks spotting; patient states s potting. hx miscarriage. heart tones only per physician TECHNIQUE:: Transabdominal (TA) HEART RATE: 172 bpm RHYTHM: Normal IMPRESSION: Single live intrauterine . [facility], Workstation: [id number], 09/25/2024 9:38 PM
--- NOTE | 2024-09-25 22:45 | ED ---
General Adult HPI - General Chief complaint: OB/Uterine Contractions Stated complaint: 8 weeks prego, spoting Time Seen by Provider: 09/25/24 20:20 Source: patient Mode of arrival: ambulatory Limitations: no limitations - History of Present Illness Initial comments: 29-year-old female currently 8 weeks presenting with chief complaint of nausea and vomiting. Patient has history of nausea and vomiting during her pregnancies. States that normally she takes Zofran [id number] to help prevent this, however last night she forgot to take it and she has been vomiting since early this morning. She is unable to keep down any food or fluids. She then started having some spotting. No urinary symptoms. No diarrhea. No unilateral pelvic pain. States she has had a previous ultrasound at [facility] confirming an intrauterine , she will see her MECHANICAL DEVELOPMENT ENGINEER Dr. Villarreal at her scheduled appointment in a few weeks - Related Data Home Medications Medication Instructions Recorded Confirmed Vit No.179/Iron/Folic 1 each PO DAILY 08/28/23 08/28/23 [ Tablet] Previous Rx's Medication Instructions Recorded Ibuprofen [Motrin] 600 mg PO Q6HR PRN #30 tab 08/30/23 Ondansetron Odt [Zofran Odt] 4 mg PO Q8HR PRN #20 tab 09/25/24 Allergies Allergy/AdvReac Type Severity Reaction Status Date / Time No Known Allergies Allergy Verified 09/25/24 19:26 Review of Systems ROS Statement: Those systems with pertinent positive or pertinent negative responses have been documented in the HPI. ROS Other: All systems not noted in ROS Statement are negative. Past Medical History Past Medical History: No Reported History Additional Past Medical History / Comment(s): Obstetric history: First was a spontaneous . Second was a NVD at 40 weeks. This is her third . She's had care with mt since 11 weeks gestation. Blood type is O+, abs negative, rubella immune, RPR nonreactive, hep is B-, HIV nonreactive. declined quad screen, normal anatomy ultrasound. Normal 1 hour glucose tolerance test. GBS negative. History of Any Multi-Drug Resistant Organisms: None Reported Past Surgical History: No Surgical Hx Reported Past Anesthesia/Blood Transfusion Reactions: No Reported Reaction Past Psychological History: No Psychological Hx Reported Smoking Status: Never smoker Past Alcohol Use History: None Reported Past Drug Use History: None Reported - Past Family History Father Family Medical History: No Reported History General Exam Limitations: no limitations General appearance: alert, in no apparent distress Head exam: Present: atraumatic, normocephalic, normal inspection Eye exam: Present: normal appearance, EOMI Neck exam: Present: normal inspection. Absent: meningismus Respiratory exam: Present: normal lung sounds bilaterally. Absent: respiratory distress, wheezes, rales, rhonchi, stridor Cardiovascular Exam: Present: regular rate, normal rhythm, normal heart sounds. Absent: systolic murmur, diastolic murmur, rubs, gallop, clicks GI/Abdominal exam: Present: soft. Absent: distended, tenderness, guarding, rebound, rigid Neurological exam: Present: alert, oriented X3 Psychiatric exam: Present: normal affect, normal mood Skin exam: Present: warm, dry, normal color Course Vital Signs 09/25/24 19:23 Temperature 98.1 F Pulse Rate 92 Respiratory 15 Rate Blood Pressure 136/91 O2 Sat by Pulse 96 Oximetry Medical Decision Making - Medical Decision Making Was pt. sent in by a medical professional or institution (, PA, ONLINE PUBLISHER, urgent care, hospital, or [facility]...) When possible be specific @ -No Did you speak to anyone other than the patient for history (EMS, parent, family, police, friend...)? What history was obtained from this source @ -No Did you review nursing and triage notes (agree or disagree)? Why? @ -I reviewed and agree with nursing and triage notes Were old charts reviewed (outside hosp., previous admission, EMS record, old EKG, old radiological studies, urgent care reports/EKG's, [facility] records)? Report findings @ -No old charts were reviewed Differential Diagnosis (chest pain, altered mental status, abdominal pain women, abdominal pain men, vaginal bleeding, weakness, fever, dyspnea, syncope, headache, dizziness, GI bleed, back pain, seizure, CVA, palpatations, mental health, musculoskeletal)? @ -Differential includes hyperemesis gravidarum, UTI, kidney stone, pancreatitis, appendicitis, cholecystitis, bowel obstruction, gastroenteritis, not an all-inclusive list EKG interpreted by me (3pts min.). @ -As above X-rays interpreted by me (1pt min.). @ -None done CT interpreted by me (1pt min.). @ -None done U/S interpreted by me (1pt. min.). @ -Ultrasound shows single live intrauterine What testing was considered but not performed or refused? (CT, X-rays, U/S, labs)? Why? @ -None What meds were considered but not given or refused? Why? @ -None Did you discuss the management of the patient with other professionals (p hermanfessionals i.e. , PA, ONLINE PUBLISHER, lab, RT, psych nurse, social media content specialist, electrical design technologist, teacher, loan officer, high risk case manager)? Give summary @ -No Was smoking cessation discussed for >3mins.? @ -No Was critical care preformed (if so, how long)? @ -No Were there social determinants of health that impacted care today? How? (Homelessness, low income, unemployed, alcoholism, drug addiction, transportation, low edu. Level, literacy, decrease access to med. care, correction, rehab)? @ -No Was there de-escalation of care discussed even if they declined (Discuss DNR or withdrawal of care, Hospice)? DNR status @ -No What co-morbidities impacted this encounter? (DM, HTN, Smoking, COPD, CAD, Cancer, CVA, ARF, Chemo, Hep., AIDS, mental health diagnosis, sleep apnea, morbid obesity)? @ -None Was patient admitted / discharged? Hospital course, mention meds given and route, prescriptions, significant lab abnormalities, going to OR and other pertinent info. @ -29-year-old female currently 8 weeks who presented with chief complaint of nausea and vomiting. Patient started having some spotting today. History and physical examination are conducted. WBC 17.3, this may be reactive. Lipase is WNL. Looking at the patient's records she is blood type O+, RhoGAM not indicated. hCG 132,855. Ultrasound shows single live IUP. On reassessment the patient reports significant improvement in her symptoms. Patient would prefer to be discharged home at this time and return if symptoms worsen for UA. I believe this is reasonable, patient is having no urinary symptoms, states that she is tired and would just like to go home. She is educated on today's findings and management plan. Sent [facility] for home. She will follow-up with her MECHANICAL DEVELOPMENT ENGINEER Dr. Villarreal at her scheduled appointment in a few weeks. Follow-up with PCP. Report back to ER with any new or worsening symptoms. Discussed return parameters and answered all questions. Patient conveyed verbal understanding and agreed to the plan. I discussed this case in detail with my attending Dr. Cook Undiagnosed new problem with uncertain prognosis? @ -No Drug Therapy requiring intensive monitoring for toxicity (Heparin, Nitro, Insulin, Cardizem)? @ -No Were any procedures done? @ -No Diagnosis/symptom? @ -Threatened miscarriage, nausea vomiting in Acute, or Chronic, or Acute on Chronic? @ -Acute Uncomplicated (without systemic symptoms) or Complicated (systemic symptoms)? @ -Uncomplicated Side effects of treatment? @ -No Exacerbation, Progression, or Severe Exacerbation? @ -No Poses a threat to life or bodily function? How? (Chest pain, USA, AR, pneumonia, PE, COPD, DKA, ARF, appy, cholecystitis, CVA, Diverticulitis, Homicidal, Suicidal, threat to staff... and all critical care pts) @ -Low likelihood - Lab Data Result diagrams: 09/25/24 20:50 09/25/24 20:50 Lab Results 09/25/24 09/25/24 09/25/24 Range/Units 20:50 20:50 20:50 WBC 17.3 H (3.8-10.6) k/uL RBC 5.12 (3.80-5.40) m/uL Hgb 16.7 H (11.4-16.0) gm/dL Hct 48.5 H (34.0-46.0) % MCV 94.8 (80.0-100.0) fL MCH 32.7 (25.0-35.0) pg MCHC 34.5 (31.0-37.0) g/dL RDW 12.1 (11.5-15.5) % Plt Count 249 (150-450) k/uL MPV 9.0 Neutrophils % 94 % Lymphocytes % 3 % Monocytes % 2 % Eosinophils % 1 % Basophils % 0 % Neutrophils # 16.3 H (1.3-7.7) k/uL Lymphocytes # 0.5 L (1.0-4.8) k/uL Monocytes # 0.3 (0-1.0) k/uL Eosinophils # 0.1 (0-0.7) k/uL Basophils # 0.0 (0-0.2) k/uL Sodium 138 (137-145) mmol/L Potassium 4.2 (3.5-5.1) mmol/L Chloride 104 (98-107) mmol/L Carbon Dioxide 17 L (22-30) mmol/L Anion Gap 17 mmol/L BUN 12 (7-17) mg/dL Creatinine 0.52 (0.52-1.04) mg/dL Est GFR (CKD-EPI)AfAm >90 (>60 ml/min/1.73 sqM) Est GFR (CKD-EPI)NonAf >90 (>60 ml/min/1.73 sqM) Glucose 133 H (74-99) mg/dL Plasma Lactic Acid Timbo 1.4 (0.7-2.0) mmol/L Calcium 10.2 (8.4-10.2) mg/dL Total Bilirubin 1.2 (0.2-1.3) mg/dL AST 26 (14-36) U/L ALT 21 (4-34) U/L Alkaline Phosphatase 74 (38-126) U/L Total Protein 7.8 (6.3-8.2) g/dL Albumin 5.0 (3.5-5.0) g/dL Lipase 114 (23-300) U/L HCG, Quant 897924.0 mIU/mL Disposition Clinical Impression: Nausea and vomiting during , Threatened Disposition: HOME SELF-CARE Condition: Good Instructions (If sedation given, give patient instructions): Threatened Miscarriage (ED), Nausea and Vomiting in (ED) Additional Instructions: Follow-up with PCP and MECHANICAL DEVELOPMENT ENGINEER. Report back to ER with any new or worsening symptoms. Take Tylenol as needed for pain. Take medication as prescribed. Obtain repeat beta-hCG in 48 hours Prescriptions: Ondansetron Odt [Zofran Odt] 4 mg PO Q8HR PRN #20 tab PRN Reason: Nausea Is patient prescribed a controlled substance at d/c from ED?: No Referrals: Anthony Horn MD [Primary Care Provider] - 1-2 days Pamela Villarreal DO [Doctor of Osteopathic Medicine] - 1-2 days Time of Disposition: 22:45
[2024-09-25 23:04] VITALS: BP 104/76; PULSE 89; RESP 18; TEMP 97.8
== END 2024-09-25 23:04 | disposition home or self-care (01) ==
LOC: EC 19:04
DX: O20.0 Threatened abortion (principal); O21.9 Vomiting of pregnancy, unspecified; Z3A.08 8 weeks gestation of pregnancy
CPT/HCPCS: 36415; 80053; 83605; 83690; 85025; 84702; 76815; 99284; 96374; 96361 ×2; J2405

== ENCOUNTER 2025-02-02 11:40 | Outpatient (CLI) | payer BC ==
[2025-02-02] MEDS ORDERED: LACTATED RINGERS 500 ML IV ONE (12:13)
[2025-02-02] MEDS: LACTATED RINGERS 1,000 ML IV SCH (12:20)
[2025-02-02 12:32] LABS: Bacteria,Urine Occasional /hpf; Bilirubin,Urine 3+ (Negative); Blood,Urine Negative (Negative); Color,Urine Dark Brown; Glucose,Urine (UA) Negative (Negative); Ketones,Urine 1+ (Negative); Leukocyte Esterase,Urine Negative (Negative); Mucus,Urine Occasional /hpf; Nitrite,Urine Negative (Negative); PH, Urine 8.0 (5.0-8.0); Protein,Urine 1+ (Negative); RBC,Urine 2 /hpf (0-5); Specific Gravity,Urine 1.025 (1.001-1.035); Squamous Epithelial Cell,Urine 38 /hpf (0-4); Urobilinogen,Urine 3.0 mg/dL (<2.0); WBC,Urine 4 /hpf (0-5)
[2025-02-02] MEDS: ACETAMINOPHEN IV (For NPO) 1,000 MG in EMPTY BAG 1 BAG IVPB STA (14:51)
[2025-02-02 15:15] LABS: ALT 237 U/L (4-34); African American GFR (CKD) >90 (>60 ml/min/1.73 sqM); Anion Gap 11 mmol/L; Blood Urea Nitrogen 5 mg/dL (7-17); Calcium 9.1 mg/dL (8.4-10.2); Carbon Dioxide 18 mmol/L (22-30); Chloride 106 mmol/L (98-107); Glucose 74 mg/dL (74-99); Non-African American GFR(CKD) >90 (>60 ml/min/1.73 sqM); Sodium 135 mmol/L (137-145)
[2025-02-02 15:16] LABS: Albumin 3.9 g/dL (3.5-5.0); Potassium 4.4 mmol/L (3.5-5.1); Total Protein 6.6 g/dL (6.3-8.2)
[2025-02-02 15:17] LABS: AST 235 U/L (14-36); Alkaline Phosphatase 187 U/L (38-126)
--- NOTE | 2025-02-02 16:40 | US ---
EXAMINATION TYPE: US gallbladder DATE OF EXAM: 02/02/2025 COMPARISON: NONE CLINICAL INDICATION: Female, 29 years old with history of rule out gallstones; ruq pain x 2 days, 26 weeks TECHNIQUE: Grayscale and color Doppler imaging of the right upper quadrant. FINDINGS: EXAM MEASUREMENTS: Liver Length: 13.9 cm Gallbladder Wall: 0.2 cm CBD: 0.3 cm, color Doppler imaging was utilized to isolate the common bile duct for measurement. Right Kidney: 10.1x4.7x5.3 cm [employer] NOTES: slightly limited due to overlying gas/ pt body habitus, pt is also 26 weeks preg Pancreas: tail slightly obscured Liver: Increased attenuation, decreased visualization of vessels suggestive of fatty infiltrate, sli ghtly difficult to penetrate Gallbladder: multiple echogenic foci seen with posterior shadowing. No definite gallbladder wall thickening/edema or adjacent pericholecystic fluid. Evidence for sonographic Ramos's sign: No CBD: wnl Right Kidney: Possible trace right-sided hydronephrosis. No evidence of nephrolithiasis or discrete renal mass. IMPRESSION: Cholelithiasis with numerous shadowing gallstones. No definite sonographic evidence of acute cholecys titis. [facility], , 02/02/2025 4:38 PM
[2025-02-02 17:34] VITALS: BP 110/71; PULSE 71; RESP 16; TEMP 99.3
--- NOTE | 2025-02-03 09:41 | P.MSEPDOC ---
Presenting Problems - Arrival Data Date of Arrival on Unit: 02/02/25 Time of Arrival on Unit: 11:40 Mode of Transport: Wheelchair - Complaint OB-Reason for Admission/Chief Complaint: Pain Comment: right side back pain x2 days, rates 8 on scale of 0-10, nausea and vomiting, carmona stools Medical History - Information : 6 Para: 3 Term: 3 : 0 Abortions: Spontaneous or Elective: 2 Number of Living Children: 3 - Gestational Age Gestational Age by CARMEN (wks/days): 26 Weeks and 5 Days Review of Systems - Review of Systems Constitutional: No problems Breast: No problems ENT: No problems Cardiovascular: No problems Respiratory: No problems Gastrointestinal: No problems Genitourinary: No problems Musculoskeletal: No problems Neurological: No problems Skin: No problems Vital Signs - Temperature Temperature: 99.3 F Temperature Source: Oral - Pulse Right Sitting Pulse Rate: 71 Pulse Assessment Method: Automatic Cuff - Respirations Respiratory Rate: 16 Oxygen Delivery Method: Room Air O2 Sat by Pulse Oximetry: 98 - Blood Pressure Right Arm Blood Pressure: 110/71 Blood Pressure Mean: 84 Blood Pressure Source: Automatic Cuff Medical Screen Scoring - Assessment - Baby A Baseline FHR: 135 Heart Rate - NICHD Category: Category I (Normal) NST: Reactive Physician Notification - Physician Notified Physician Notified Date: 02/02/25 Physician Notified Time: 17:00 Physician: Ran Quick Order Received: Yes (d/c home) Maternal Triage Index - Non-Urgent/Priority 4 Non-Urgent Priority 4: Yes Criteria Met for Priority 4: reassuring fht, no contractions, no complaints, vitals wnl Disposition - Disposition OB Disposition: Discharge to home Discharge Date: 02/02/25 Discharge Time: 17:05 I agree with the RN Medical Screening Exam: Yes Case reviewed; plan agreed upon as documented in EMR&OBIX.: Yes Diagnosis: RELATED CONDITIONS, UNSPECIFIED, SECOND TRIMESTER
== END 2025-02-02 17:05 | disposition home or self-care (01) ==
LOC: FBPOP 11:40
PROVIDERS: ATTEND Obstetrics & Gynecology
DX: O26.892 Other specified pregnancy related conditions, second trimester (principal); O26.612 Liver and biliary tract disorders in pregnancy, second trimester; K80.20 Calculus of gallbladder without cholecystitis without obstruction; Z3A.26 26 weeks gestation of pregnancy
CPT/HCPCS: 99214; 96361; 96365; 80053; 81001; 76705; J0131

== ENCOUNTER 2025-02-04 14:45 | Observation (INO) | payer BC ==
[2025-02-04] MEDS: LACTATED RINGERS 1,000 ML IV SCH (15:30)
[2025-02-04] MEDS: HYDROmorphone 1 MG/ML 1 ML SYRINGE IVP PRN (15:38)
[2025-02-04 15:42] LABS: Basophils # (A) 0.02 10*3/uL (0.00-0.10); Basophils % (A) 0.2 %; Eosinophils # (A) 0.01 10*3/uL (0.04-0.35); Eosinophils % (A) 0.1 %; HCT 36.8 % (37.2-46.3); HGB 12.9 g/dL (12.0-15.0); Lymphocytes # (A) 1.14 10*3/uL (0.90-5.00); Lymphocytes % (A) 13.6 %; MCH 34.4 pg (27.0-32.0); MCHC 35.1 g/dL (32.0-37.0); MCV 98.1 fL (80.0-97.0); Monocytes # (A) 0.55 10*3/uL (0.20-1.00); Monocytes % (A) 6.6 %; Neutrophils # (A) 6.60 10*3/uL (1.80-7.70); Neutrophils % (A) 78.7 %; Platelet Count 184 10*3/uL (140-440); RBC 3.75 10*6/uL (4.10-5.20); RDW 13.0 % (11.5-14.5); WBC 8.39 10*3/uL (4.50-10.00)
[2025-02-04 16:07] LABS: ALT 195 U/L (4-34); AST 136 U/L (14-36); African American GFR (CKD) >90 (>60 ml/min/1.73 sqM); Albumin 3.7 g/dL (3.5-5.0); Alkaline Phosphatase 208 U/L (38-126); Anion Gap 8 mmol/L; Blood Urea Nitrogen 7 mg/dL (7-17); Calcium 9.1 mg/dL (8.4-10.2); Carbon Dioxide 20 mmol/L (22-30); Chloride 107 mmol/L (98-107); Glucose 95 mg/dL (74-99); Non-African American GFR(CKD) >90 (>60 ml/min/1.73 sqM); Potassium 3.4 mmol/L (3.5-5.1); Sodium 135 mmol/L (137-145); Total Protein 6.1 g/dL (6.3-8.2)
[2025-02-04] MEDS: ONDANSETRON 4 MG/2 ML VIAL IVP PRN (17:46)
[2025-02-05] MEDS: ACETAMINOPHEN IV (For NPO) 1,000 MG in EMPTY BAG 1 BAG IVPB SCH (00:04)
[2025-02-05 08:42] VITALS: BP 122/67; PULSE 82; RESP 17; TEMP 97.5
--- NOTE | 2025-02-05 08:50 | P.HPOB ---
History of Present Illness H&P Date: 02/05/25 Chief Complaint: IUP at 37 weeks, gallstones 29-year-old 6 para 3-0-2-3 that presented to labor and delivery yesterday evening with complaints of increased right upper quadrant pain. Patient was seen in OB triage with similar concerns and diagnosed with gallstones. Patient states she had noted increased pain after eating toast. Patient had significant nausea and vomiting while in OB triage yesterday. Pain is currently controlled with IV Ofirmev Patient is noting good movement Patient denies contractions, vaginal bleeding or loss of fluid EMTS history 6 para 3-0-2-3 This has been complicated by a marginal cord insertion Review of Systems Constitutional: Denies chills, Denies fatigue, Denies fever Ears, nose, mouth and throat: Denies headache Cardiovascular: Reports leg edema Respiratory: Denies dyspnea Gastrointestinal: Reports nausea, Reports vomiting Genitourinary: Reports Past Medical History Past Medical History: No Reported History Additional Past Medical History / Comment(s): Obstetric history: First was a spontaneous . Second was a NVD at 40 weeks. This is her third . She's had care with me since 11 weeks gestation. Blood type is O+, abs negative, rubella immune, RPR nonreactive, hep is B-, HIV nonreactive. declined quad screen, normal anatomy ultrasound. Normal 1 hour glucose tolerance test. GBS negative. History of Any Multi-Drug Resistant Organisms: None Reported Past Surgical History: No Surgical Hx Reported Past Anesthesia/Blood Transfusion Reactions: No Reported Reaction Past Psychological History: No Psychological Hx Reported Smoking Status: Never smoker Past Alcohol Use History: None Reported Past Drug Use History: None Reported - Past Family History Father Family Medical History: No Reported History Medications and Allergies Home Medications Medication Instructions Recorded Confirmed Type Vit No.179/Iron/Folic 1 each PO DAILY 08/28/23 02/04/25 History [ Tablet] Acetaminophen-Codeine 300-30mg 1 tab PO ONCE 02/04/25 02/04/25 History [Tylenol w/codeine #3] Allergies Allergy/AdvReac Type Severity Reaction Status Date / Time No Known Allergies Allergy Verified 02/04/25 14:54 Exam Osteopathic Statement: *. No significant issues noted on an osteopathic structural exam other than those noted in the History and Physical/Consult. Vital Signs Temp Pulse Resp BP Pulse Ox 02/05/25 08:20 97.5 F L 82 17 122/67 97 02/05/25 01:45 97.2 F L 63 16 110/58 02/05/25 01:40 97.5 F L 74 16 97/57 02/04/25 14:52 97.8 F 86 16 137/83 96 Intake and Output 02/04/25 02/05/25 02/05/25 22:59 06:59 14:59 Other: # Voids 2 1 Targeted physical exam is performed this date in general is well-nourished well- developed female in no acute distress, IV Ofirmev is running and she states that is helping with her pain. Abdomen is gravid, heart tones noted to be appropriate for gestational age Results Result Diagrams: 02/04/25 15:25 02/04/25 15:25 Abnormal Lab Results - Last 24 Hours (Table) 02/04/25 02/04/25 Range/Units 15:25 15:25 RBC 3.75 L (4.10-5.20) 10*6/uL Hct 36.8 L (37.2-46.3) % MCV 98.1 H (80.0-97.0) fL MCH 34.4 H (27.0-32.0) pg Immature Gran # 0.07 H (0.00-0.04) 10*3/uL Eosinophils # 0.01 L (0.04-0.35) 10*3/uL Sodium 135 L (137-145) mmol/L Potassium 3.4 L (3.5-5.1) mmol/L Carbon Dioxide 20 L (22-30) mmol/L Creatinine 0.47 L (0.52-1.04) mg/dL Total Bilirubin 3.3 H (0.2-1.3) mg/dL AST 136 H (14-36) U/L ALT 195 H (4-34) U/L Alkaline Phosphatase 208 H (38-126) U/L Total Protein 6.1 L (6.3-8.2) g/dL Assessment and Plan (1) 27 weeks gestation of Current Visit: Yes Status: Acute Code(s): Z3A.27 - 27 WEEKS GESTATION OF SNOMED Code(s): 34572435 (2) Gallstones Narrative/Plan: Awaiting surgical consult Current Visit: Yes Status: Acute Code(s): K80.20 - CALCULUS OF GALLBLADDER W/O CHOLECYSTITIS W/O OBSTRUCTION SNOMED Code(s): 162199613 Plan: Observation to OB for pain control secondary to gallstones, awaiting surgical consult Continue IV fluids Ofirmev as needed for pain
[2025-02-05 09:12] LABS: Basophils # (A) 0.03 10*3/uL (0.00-0.10); Basophils % (A) 0.4 %; Eosinophils # (A) 0.01 10*3/uL (0.04-0.35); Eosinophils % (A) 0.1 %; HCT 35.4 % (37.2-46.3); HGB 12.8 g/dL (12.0-15.0); Lymphocytes # (A) 1.27 10*3/uL (0.90-5.00); Lymphocytes % (A) 15.6 %; MCH 35.6 pg (27.0-32.0); MCHC 36.2 g/dL (32.0-37.0); MCV 98.3 fL (80.0-97.0); Monocytes # (A) 0.38 10*3/uL (0.20-1.00); Monocytes % (A) 4.7 %; Neutrophils # (A) 6.35 10*3/uL (1.80-7.70); Neutrophils % (A) 78.1 %; Platelet Count 178 10*3/uL (140-440); RBC 3.60 10*6/uL (4.10-5.20); RDW 12.7 % (11.5-14.5); WBC 8.13 10*3/uL (4.50-10.00)
[2025-02-05 09:22] LABS: ALT 174 U/L (4-34); AST 92 U/L (14-36); African American GFR (CKD) >90 (>60 ml/min/1.73 sqM); Albumin 3.4 g/dL (3.5-5.0); Alkaline Phosphatase 204 U/L (38-126); Anion Gap 10 mmol/L; Blood Urea Nitrogen 5 mg/dL (7-17); Calcium 8.7 mg/dL (8.4-10.2); Carbon Dioxide 16 mmol/L (22-30); Chloride 109 mmol/L (98-107); Glucose 71 mg/dL (74-99); Non-African American GFR(CKD) >90 (>60 ml/min/1.73 sqM); Potassium 3.6 mmol/L (3.5-5.1); Sodium 135 mmol/L (137-145); Total Protein 5.8 g/dL (6.3-8.2)
[2025-02-05 10:46] LABS: Amylase 48 U/L (30-110); Lipase 48 U/L (23-300)
--- NOTE | 2025-02-05 11:58 | P.CONS ---
History of Present Illness - Reason for Consult Consult date: 02/05/25 Gallstones Requesting physician: Lester Sinclair - Chief Complaint Abdominal pain, nausea and vomiting - History of Present Illness This is a pleasant 29-year-old female who is 27 weeks admitted to the [facility] with complaints of abdominal pain with ultrasound evidence of cholelithiasis and elevated LFTs. Apparently patient states pain started last week that was starting in her back and radiating around into her epigastri right upper quadrant region. She tried to stay home and tolerate the pain however on Tuesday she came into the triage area and was noted to have layering gallstones and gallbladder ultrasound without any CBD dilation. She was sent home however yesterday she tried to eat some toast and the pain was more than she could tolerate states again that it was in the upper right abdomen and radiating into her back she had nausea and vomiting associated with the pain. She came back into the labor and delivery triage and was admitted for cholelithiasis. General surgery was consulted and noting elevated bilirubin and LFTs consulted gastroenterology for further evaluation for possible choledocholithiasis. Patient states abdominal pain is improved with the IV Tylenol however she states that she is having to take that is much as possible also states that she is taking Zofran for nausea but has not had any vomiting. She denies any fevers or chills, she has been afebrile. Admitting labs WBC 8.3 hemoglobin 12.9 platelet count 184,000 sodium 135 potassium 3.4 BUN 7 creatinine 0.4 total bilirubin 3.3 AST 136 ALT 195 alkaline phosphatase 208 patient reports dark urine for the last couple days duration. Review of Systems REVIEW OF SYSTEMS: CARDIOPULMONARY: No chest pain or shortness of breath. Gastrointestinal: Abdominal pain right upper quadrant radiating into her back. Nausea and vomiting. No hematemesis, coffee-ground emesis. No rectal bleeding, or melena. GENITOURINARY: No dysuria or hematuria. PARTNER: Patient is 27 weeks . MUSCULOSKELETAL: Reports normal range of motion., SKIN: No rashes. No jaundice. ENDOCRINE: No chills, fevers. No excessive weight gain or loss. No polydipsia or polyuria. PSYCHIATRIC: Unremarkable. NEUROLOGY: No change in mental status. Denies dizziness, headache. ENT: Vision unremarkable. CONSTITUTIONAL: No recent weight loss. No fever, chills, night sweats. Past Medical History Past Medical History: No Reported History Additional Past Medical History / Comment(s): Obstetric history: First was a spontaneous . Second was a NVD at 40 weeks. This is her third . She's had care with me since 11 weeks gestation. Blood type is O+, abs negative, rubella immune, RPR nonreactive, hep is B-, HIV nonreactive. declined quad screen, normal anatomy ultrasound. Normal 1 hour glucose tolerance test. GBS negative. History of Any Multi-Drug Resistant Organisms: None Reported Past Surgical History: No Surgical Hx Reported Past Anesthesia/Blood Transfusion Reactions: No Reported Reaction Past Psychological History: No Psychological Hx Reported Smoking Status: Never smoker Past Alcohol Use History: None Reported Past Drug Use History: None Reported - Past Family History Father Family Medical History: No Reported History Medications and Allergies Home Medications Medication Instructions Recorded Confirmed Type Vit No.179/Iron/Folic 1 each PO DAILY 08/28/23 02/04/25 History [ Tablet] Acetaminophen-Codeine 300-30mg 1 tab PO ONCE 02/04/25 02/04/25 History [Tylenol w/codeine #3] Allergies Allergy/AdvReac Type Severity Reaction Status Date / Time No Known Allergies Allergy Verified 02/04/25 14:54 Physical Exam Vitals: Vital Signs Temp Pulse Resp BP Pulse Ox 02/05/25 08:20 97.5 F L 82 17 122/67 97 02/05/25 01:45 97.2 F L 63 16 110/58 02/05/25 01:40 97.5 F L 74 16 97/57 02/04/25 14:52 97.8 F 86 16 137/83 96 Intake and Output 02/04/25 02/05/25 02/05/25 22:59 06:59 14:59 Other: # Voids 2 1 General appearance: The patient is alert, oriented, appears in no acute distress. HET: Head is normocephalic and atraumatic. Conjunctiva pink. Sclera anicteric. Neck: Supple without lymphadenopathy. Trachea midline. Heart: Regular. Lungs: Equal expansion, normal respiratory effort. Abdomen: Soft, abdomen, right upper quadrant and epigastric region tenderness, nondistended. Skin: No rashes. No jaundice. Extremities: Normal skin color and turgor. No pedal edema. Neurological: No focal deficits. Alert and oriented x3. Results CBC & Chem 7: 02/05/25 08:59 02/05/25 08:59 Labs: Abnormal Lab Results - Last 24 Hours (Table) 02/04/25 02/04/25 02/05/25 Range/Units 15:25 15:25 08:59 RBC 3.75 L 3.60 L (4.10-5.20) 10*6/uL Hct 36.8 L 35.4 L (37.2-46.3) % MCV 98.1 H 98.3 H (80.0-97.0) fL MCH 34.4 H 35.6 H (27.0-32.0) pg Immature Gran # 0.07 H 0.09 H (0.00-0.04) 10*3/uL Eosinophils # 0.01 L 0.01 L (0.04-0.35) 10*3/uL Sodium 135 L (137-145) mmol/L Potassium 3.4 L (3.5-5.1) mmol/L Carbon Dioxide 20 L (22-30) mmol/L Creatinine 0.47 L (0.52-1.04) mg/dL Total Bilirubin 3.3 H (0.2-1.3) mg/dL AST 136 H (14-36) U/L ALT 195 H (4-34) U/L Alkaline Phosphatase 208 H (38-126) U/L Total Protein 6.1 L (6.3-8.2) g/dL Comments: Bladder ultrasound dated 02/02/2025 reports cholelithiasis with numerous shadowing gallstones. No definite sonographic evidence of acute cholecystitis Assessment and Plan (1) Elevated LFTs Narrative/Plan: 29-year-old with intrauterine at 27 weeks presenting with right upper quadrant abdominal pain with evidence of layering gallstones on gallbladder ultrasound with no CBD evidence of dilation per ultrasound dated 02/02/2025. Patient was noted to have elevated bilirubin and LFTs which are trending down today. Need to consider possible choledocholithiasis in setting of multiple gallstones and labs with cholestatic pattern. At this time general surgery is recommending no surgical procedure, need to consider possible transfer to [facility], can repeat labs tomorrow and if continue to trend down patient can follow-up with general surgery as an outpatient. Current Visit: Yes Status: Acute Code(s): R79.89 - OTHER SPECIFIED ABNORMAL FINDINGS OF BLOOD CHEMISTRY SNOMED Code(s): 051885551 (2) Hyperbilirubinemia Current Visit: Yes Status: Acute Code(s): E80.6 - OTHER DISORDERS OF BILIRUBIN METABOLISM SNOMED Code(s): 49824279 (3) Cholelithiasis Current Visit: Yes Status: Acute Code(s): K80.20 - CALCULUS OF GALLBLADDER W/O CHOLECYSTITIS W/O OBSTRUCTION SNOMED Code(s): 855263341 (4) 27 weeks gestation of Current Visit: Yes Status: Acute Code(s): Z3A.27 - 27 WEEKS GESTATION OF SNOMED Code(s): 42989323 (5) Abdominal pain Current Visit: Yes Status: Acute Code(s): R10.9 - UNSPECIFIED ABDOMINAL PAIN SNOMED Code(s): 17077848 Plan: 1. Continue symptomatic and supportive care 2. Pain medication as needed per recommendations from obstetrics 3. Continue with Zofran for antiemetics 4. Repeat CBC, CMP, amylase and lipase 5. Daily CMP 6. Appreciate recommendations from general surgery 7. Further recommendations forthcoming based on clinical course. Patient may require transfer to tertiary center for possible choledocholithiasis. Thank you for this consultation, we will continue to follow. Dr. Eloy Yee I agree with the dictator's note, documented as a scribe by Neena Cannon.
--- NOTE | 2025-02-05 13:01 | P.GSCN ---
History of Present Illness Consult date: 02/05/25 History of present illness: CHIEF COMPLAINT: Right upper quadrant abdominal pain HISTORY OF PRESENT ILLNESS: This is a 29-year-old female who is 27 weeks . She presented to the hospital with right upper quadrant abdominal pain. She reports symptoms had started 5 days ago. Patient had been in OB triage a few days ago with similar symptoms. At that time she was diagnosed with gallstones. Patient reports she is having difficulty with pain after eating. She reports she even has pain after eating toast. She also has been nauseated. She reports the pain is in the right upper quadrant and radiates around to the back. Gallbladder ultrasound reports cholelithiasis with numerous shadowing stones. No ultrasound evidence of acute cholecystitis. Patient seen and examined with Dr. Sinclair PAST MEDICAL HISTORY: none PAST SURGICAL HISTORY: none MEDICATIONS: See below ALLERGIES: See below SOCIAL HISTORY: No illicit drug use. REVIEW OF SYSTEMS: CONSTITUTIONAL: Denies fever or chills. HEENT: Denies blurred vision, vision changes, or eye pain. Denies hemoptysis CARDIOVASCULAR: Denies chest pain or pressure. RESPIRATORY: No shortness of breath. GASTROINTESTINAL: See HPI for pertinent findings HEMATOLOGIC: Denies bleeding disorders. GENITOURINARY: Denies any blood in urine or increased urinary frequency. SKIN: Denies pruitis. Denies rash. PHYSICAL EXAM: VITAL SIGNS: Reviewed GENERAL: Well-developed in no acute distress. HEENT: No sclera icterus. Extraocular movements grossly intact. Moist buccal mucosa. Head is atraumatic, normocephalic. No nasal drainage. ABDOMEN: Soft. Nondistended. Currently nontender NEUROLOGIC: Alert and oriented. Cranial nerves II through XII grossly intact. LABORATORY DATA: WBC 8.13 Hgb 12.8 platelets 178 Sodium 135 potassium 3.6 creatinine 0.49 Total bilirubin 3.3-2.0 AST 1 36-92 ALT 195-174 alk phos [id number] Lipase 48 IMAGING: Gallbladder ultrasound reporting cholelithiasis with numerous shadowing gallstones. No ultrasound evidence of acute cholecystitis. ASSESSMENT: 1. Cholecystitis with gallbladder ultrasound reporting cholelithiasis 2. Biliary colic 3. Possible choledocholithiasis PLAN: - No plans for surgical intervention at this time - Recommend trialing a low-fat diet - Repeat LFTs in a.m. - Anticipate possible discharge tomorrow if tolerating diet and depending on lab results - Dr. Sinclair discussed plan with patient and recommended laparoscopic cholecystectomy after the delivery of the baby. He recommends a low-fat diet. When she has one of the gallbladder attacks she may need to decrease her oral intake and come to the hospital for IV fluid hydration throughout the . Physician Injector Assembler note has been reviewed by physician. Signing provider agrees with the documented findings, assessment, and plan of care. Past Medical History Past Medical History: No Reported History Additional Past Medical History / Comment(s): Obstetric history: First was a spontaneous . Second was a NVD at 40 weeks. This is her third . She's had care with me since 11 weeks gestation. Blood type is O+, abs negative, rubella immune, RPR nonreactive, hep is B-, HIV nonreactive. declined quad screen, normal anatomy ultrasound. Normal 1 hour glucose tolerance test. GBS negative. History of Any Multi-Drug Resistant Organisms: None Reported Past Surgical History: No Surgical Hx Reported Past Anesthesia/Blood Transfusion Reactions: No Reported Reaction Past Psychological History: No Psychological Hx Reported Smoking Status: Never smoker Past Alcohol Use History: None Reported Past Drug Use History: None Reported - Past Family History Father Family Medical History: No Reported History Medications and Allergies Home Medications Medication Instructions Recorded Confirmed Type Vit No.179/Iron/Folic 1 each PO DAILY 08/28/23 02/04/25 History [ Tablet] Acetaminophen-Codeine 300-30mg 1 tab PO ONCE 02/04/25 02/04/25 History [Tylenol w/codeine #3] Allergies Allergy/AdvReac Type Severity Reaction Status Date / Time No Known Allergies Allergy Verified 02/04/25 14:54 Surgical - Exam Vital Signs Temp Pulse Resp BP Pulse Ox 97.8 F 86 16 137/83 96 02/04/25 14:52 02/04/25 14:52 02/04/25 14:52 02/04/25 14:52 02/04/25 14:52 Results - Labs 02/05/25 08:59 02/05/25 08:59 Abnormal Lab Results - Last 24 Hours (Table) 02/04/25 02/04/25 02/05/25 Range/Units 15:25 15:25 08:59 RBC 3.75 L 3.60 L (4.10-5.20) 10*6/uL Hct 36.8 L 35.4 L (37.2-46.3) % MCV 98.1 H 98.3 H (80.0-97.0) fL MCH 34.4 H 35.6 H (27.0-32.0) pg Immature Gran # 0.07 H 0.09 H (0.00-0.04) 10*3/uL Eosinophils # 0.01 L 0.01 L (0.04-0.35) 10*3/uL Sodium 135 L (137-145) mmol/L Potassium 3.4 L (3.5-5.1) mmol/L Chloride (98-107) mmol/L Carbon Dioxide 20 L (22-30) mmol/L BUN (7-17) mg/dL Creatinine 0.47 L (0.52-1.04) mg/dL Glucose (74-99) mg/dL Total Bilirubin 3.3 H (0.2-1.3) mg/dL AST 136 H (14-36) U/L ALT 195 H (4-34) U/L Alkaline Phosphatase 208 H (38-126) U/L Total Protein 6.1 L (6.3-8.2) g/dL Albumin (3.5-5.0) g/dL / Range/Units 08:59 RBC (4.10-5.20) 10*6/uL Hct (37.2-46.3) % MCV (80.0-97.0) fL MCH (27.0-32.0) pg Immature Gran # (0.00-0.04) 10*3/uL Eosinophils # (0.04-0.35) 10*3/uL Sodium 135 L (137-145) mmol/L Potassium (3.5-5.1) mmol/L Chloride 109 H (98-107) mmol/L Carbon Dioxide 16 L (22-30) mmol/L BUN 5 L (7-17) mg/dL Creatinine 0.49 L (0.52-1.04) mg/dL Glucose 71 L (74-99) mg/dL Total Bilirubin 2.0 H (0.2-1.3) mg/dL AST 92 H (14-36) U/L ALT 174 H (4-34) U/L Alkaline Phosphatase 204 H (38-126) U/L Total Protein 5.8 L (6.3-8.2) g/dL Albumin 3.4 L (3.5-5.0) g/dL Diabetes panel 02/04/25 02/05/25 Range/Units 15:25 08:59 Sodium 135 L 135 L (137-145) mmol/L Potassium 3.4 L 3.6 (3.5-5.1) mmol/L Chloride 107 109 H (98-107) mmol/L Carbon Dioxide 20 L 16 L (22-30) mmol/L BUN 7 5 L (7-17) mg/dL Creatinine 0.47 L 0.49 L (0.52-1.04) mg/dL Glucose 95 71 L (74-99) mg/dL Calcium 9.1 8.7 (8.4-10.2) mg/dL AST 136 H 92 H (14-36) U/L ALT 195 H 174 H (4-34) U/L Alkaline Phosphatase 208 H 204 H (38-126) U/L Total Protein 6.1 L 5.8 L (6.3-8.2) g/dL Albumin 3.7 3.4 L (3.5-5.0) g/dL Calcium panel 02/04/25 02/05/25 Range/Units 15: 08:59 Calcium 9.1 8.7 (8.4-10.2) mg/dL Albumin 3.7 3.4 L (3.5-5.0) g/dL Pituitary panel 02/04/25 02/05/25 Range/Units 15:25 08:59 Sodium 135 L 135 L (137-145) mmol/L Potassium 3.4 L 3.6 (3.5-5.1) mmol/L Chloride 107 109 H (98-107) mmol/L Carbon Dioxide 20 L 16 L (22-30) mmol/L BUN 7 5 L (7-17) mg/dL Creatinine 0.47 L 0.49 L (0.52-1.04) mg/dL Glucose 95 71 L (74-99) mg/dL Calcium 9.1 8.7 (8.4-10.2) mg/dL Adrenal panel 02/04/25 02/05/25 Range/Units 15:25 08:59 Sodium 135 L 135 L (137-145) mmol/L Potassium 3.4 L 3.6 (3.5-5.1) mmol/L Chloride 107 109 H (98-107) mmol/L Carbon Dioxide 20 L 16 L (22-30) mmol/L BUN 7 5 L (7-17) mg/dL Creatinine 0.47 L 0.49 L (0.52-1.04) mg/dL Glucose 95 71 L (74-99) mg/dL Calcium 9.1 8.7 (8.4-10.2) mg/dL Total Bilirubin 3.3 H 2.0 H (0.2-1.3) mg/dL AST 136 H 92 H (14-36) U/L ALT 195 H 174 H (4-34) U/L Alkaline Phosphatase 208 H 204 H (38-126) U/L Total Protein 6.1 L 5.8 L (6.3-8.2) g/dL Albumin 3.7 3.4 L (3.5-5.0) g/dL
== END 2025-02-05 14:02 | disposition home or self-care (01) ==
LOC: 4FBP 14:45
PROVIDERS: ADMIT Obstetrics & Gynecology Obstetrics; ATTEND Obstetrics & Gynecology Obstetrics
DX: O99.612 Diseases of the digestive system complicating pregnancy, second trimester (principal); K80.10 Calculus of gallbladder with chronic cholecystitis without obstruction; O43.192 Other malformation of placenta, second trimester; Z3A.27 27 weeks gestation of pregnancy
CPT/HCPCS: 96376; 96361 ×2; 96365; 96375; 80053 ×2; 82150; 83690; 85025 ×2; G0378; J2405 ×2; J1171; J0131